=== PATIENT | female | born 1955 | race African-American/Black ===

== ENCOUNTER 2016-11-20 18:06 | Inpatient (IN) | payer OTHER ==
--- NOTE | ~2016-11-20 | EKG ---
PATIENT: KATLYN EASLEY UNIT #: [id number] Ventricular Rate: 117 BPM Atrial Rate: 300 BPM QRS Duration: 82 ms Q-T Interval: 312 ms QTC Calculation(Bezet): 435 ms Calculated R [place]: 83 degrees Calculated T [place]: -111 degrees Diagnosis Line: Atrial fibrillation with rapid ventricular Diagnosis Line: response Diagnosis Line: ST and T wave abnormality, consider inferolateral Diagnosis Line: ischemia or digitalis effect Diagnosis Line: Abnormal ECG Diagnosis Line: When compared with ECG of 28-NOV-2016 06:22, Diagnosis Line: Inverted T waves have replaced nonspecific T wave Diagnosis Line: abnormality in Inferior leads Diagnosis Line: Inverted T waves have replaced nonspecific T wave Diagnosis Line: abnormality in Lateral leads Diagnosis Line: Confirmed by LAURA ARMAS MD ([id number]) on Diagnosis Line: 12/04/2016 10:39:50 PM INTERPRETING MD: VINCENT
--- NOTE | ~2016-11-20 | FU ---
[facility] DATE: 11/24/16 Patient: KATLYN EASLEY Physician: MORCAR Address: [address] [place] [address] CT Room/Bed: [address], Zip: [place] [address] Admit Date: 11/21/16 Date of : 53 Height: 5 7 Weight: 484 219.8 NUTRITION MONITORING/FOLLOW-UP: Reason: PT SEEN FOR FOLLOW-UP/ENTERAL NUTRITION SUPPORT DX: ACUTE CHF, AFIB, AMS, PNA Anthropometrics: 5'7", WT: 489# (222 KG), BMI: 76.6 -ADMIT WEIGHT: 503# (229 KG) Labs: GLU: 126, ALB: 2.6, AST: 61, ALT: 57, GFR: 58.5 Meds: VERSED, FENTANYL, COLACE, KCL, VERSED, PROTONIX I&O's: 0700/0106 Skin: ISSUES NOTED; ALSO ABD WOUND NOTED EDEMA: BLE 2+ EDEMA Estimated Nutrition Needs: [phone] KCAL/K ADJ BW 122-153 G PRO/KG IBW Assessment: CHART REVIEWED AND EVENTS NOTED. PT SEEN FOR ENTERAL NUTRITION SUPPORT FOLLOW-UP. PT CONTINUES TO BE INTUBATED AND SEDATED AT TIME OF VISIT RECEIVING VITAL HIGH PROTEIN @ 75 ML/HR. PER RN AND CHART, PT TOLERATING ENTERAL NUTRITION SUPPORT AND NOTING NO ISSUES AT THIS TIME. RD TO CONTINUE TO FOLLOW. Dx: INADEQUATE ORAL INTAKE R/T DX, CURRENT CONDITION AEB PT INTUBATED AND SEDATED, PT RECEIVING ALTERNATIVE NUTRITION SUPPORT. Intervention: 1. ENTERAL NUTRITION SUPPORT Monitoring, Evaluation and Goals: GOALS MET 1. ENTERAL NUTRITION; TOLERATE EN AT GOAL W/NO SIGNS OF INTOLERANCE 2. PO INTAKE; ADVANCE DIET PER PT TOLERANCE 3. WEIGHTS; PROMOTE GRADUAL WEIGHT LOSS 4. LABS; WNL MONITOR: -WEIGHTS -TF RATE/RESIDUALS -EXTUBATION? -LABS [facility] DATE: 11/24/16 Patient: KATLYN EASLEY Physician: HARIS Address: [address] [place] [address] Room/Bed: [address], Zip: [place] [address] Admit Date: 11/21/16 Date of : [birth year] Height: 5 7 Weight: 484 219.8 Recommendations: 1. CONTINUE CURRENT ENTERAL NUTRITION SUPPORT OF VITAL HIGH PROTEIN @ 75 ML/HR -PROVIDES 1800 KCAL, 157 G PRO, 1512 ML FREE H20 CONTINUE FREE H20 FLUSHES PER MD 2. ONCE PT EXTUBATED, ADVANCE DIET PER VP STRATEGY + CC+HH TO PROMOTE GRADUAL WEIGHT LOSS TOWARDS HEALTHY BMI (19.0-25.0) OR +/-10%IBW RD WILL F/U PER PROTOCOL PT IS SEVERELY COMPROMISED Respectfully, FERN WOODRUFF MS, RD, LD Food and Nutritional Services [facility] cc: client file
--- NOTE | ~2016-11-20 | OR ---
Unit #: [id number] #: [id number] Patient: KATLYN EASLEY [id number] [address] [address] [id number] Vashti MR#: [id number] NAME: KATLYN EASLEY ROOM: [facility] Date of Procedure: 11/30/2016 Admission Date: 11/21/2016 Surgeon: Nahun Cardona M.D. : 1955 Attending Physician: Elizabeth Chamberlain M.D. OPERATIVE REPORT PROCEDURE PERFORMED Esophagogastroduodenoscopy to descending duodenum. INDICATIONS FOR PROCEDURE A 61-year-old female on chronic ventilator and tube feeding from chronic respiratory failure, undergoing evaluation for PEG tube placement. MEDICATIONS Monitored anesthesia. POSTOPERATIVE FINDINGS 1. Normal esophagus, normal duodenum, and distal duodenum. 2. Moderate gastritis. 3. I was unable to see a good spot for PEG tube placement by transillumination and indentation and hence, PEG tube was not attempted. PLAN Consult Surgery for surgical G-tube placement. DESCRIPTION OF PROCEDURE The patient was explained of the procedure, risks, and benefits along with risks and benefits of the anesthesia. Informed consent was obtained from power of securities attorney. Endo team was brought to the ICU. Monitored anesthesia was given. The scope was then passed down the mouth into the esophagus, stomach, duodenum, and distal duodenum. Findings as described. I did not see any transillumination despite many attempts. No indentation was seen also. At this point, we decided it was not possible to put a feeding tube. The scope was gently pulled out. She tolerated it well. No major complications were seen. Dictated by... Solo Wright/nanda TD: 11/30/2016 23:18 JOB #: [id number] Unit #: [id number] #: [id number] Patient: KATLYN EASLEY OPERATIVE REPORT X Nahun Cardona MD PROCEDURE OPERATIVE NOTE
--- NOTE | ~2016-11-20 | CR71 ---
[facility] A Service of [facility] & [facility] RADIOLOGY TEXT RESULTS PATIENT: KATLYN EASLEY LOCATION: [place] [address]10 : [birth year] UNIT #: [id number] AGE: [address]: Elizabeth Chamberlain MD SEX: F ORDER DR: [id number] [facility] [address] [facility] [place], [place] [address] [id number] I MR#: [id number] Acc #: [id number] NAME: KATLYN EASLEY : 1955 SEX: F STUDY DATE/TIME: 11/25/2016 4:44 UNIT: [facility] ROOM: [facility] STUDY DESCRIPTION: CR Chest Single View Attending Physician: Elizabeth Chamberlain M.D. Ordering Physician: Katie Peguero M.D. Primary Care Physician: Primary Care Physician No MEDICAL IMAGING REPORT This report is preliminary unless electronic signature is present EXAM Portable chest 11/25/2016 HISTORY Acute respiratory failure, intubated, follow up infiltrates. Congestive heart failure. Symptoms for 4 days. Benign essential hypertension and atrial fibrillation. FINDINGS The heart is enlarged but stable compared with 11/24/2016. There has been no change in the position of the life support equipment. There are bilateral pleural effusions layering posteriorly with bibasilar infiltrates or atelectasis. Pulmonary edema is essentially unchanged. IMPRESSION No interval change compared with 11/24/2016. Dictated by... Ken Childs M.D. THIS IS AN ELECTRONICALLY VERIFIED REPORT Ken Childs M.D. at 11/25/2016 3:00 PM PALOMA/bonifacio TD: 11/25/2016 07:10 JOB #: [id number] MEDICAL IMAGING REPORT COPY
--- NOTE | ~2016-11-20 | FU ---
[facility] Nutrition Therapy DATE: 12/07/16 Patient: KATLYN EASLEY Physician: MORCAR Address: [address] [place] [address] Room/Bed: [address], Zip: [place] [address] Admit Date: 11/21/16 Date of : [birth year] Height: 5 7 Weight: 471 214 NUTRITION MONITORING/FOLLOW-UP: Reason: PT SEEN FOR FOLLOW-UP/ENTERAL NUTRITION SUPPORT DX: ACUTE CHF Anthropometrics: 5'7", WT: 471# ( 214 KG), BMI: 73.8 Labs: BUN: 49, ALB: 1.8, AST: 48, GFR: 49.0, NA+:151 Meds: D5%, LOPRESSOR, NACL, VERSED, PROTONIX, ZOFRAN, KCL I&O's: 1080/830 Skin: ABD WOUND NOTED EDEMA: PEDAL/ANKLE 1+ EDEMA; BUE/HANDS GENERALIZED EDEMA; BLE GENERALIZED EDEMA Estimated Nutrition Needs: 3521-2801 KCAL (ADJUSTED BODY WEIGHT) 122-153 G PRO (IBW) FLUIDS CONSISTENT W/KCAL NEEDS OR MANAGE PER MD Assessment: CHART REVIEWED AND EVENTS NOTED. PT SEEN FOR ENTERAL NUTRITION SUPPORT FOLLOW-UP. PT CONTINUES TO BE INTUBATED AND SEDATED. ENTERAL NUTRITION SUPPORT CURRENTLY OFF AT THIS TIME. OF NOTE, PT IS S/P EXPLORATORY LAP TRANSVERSE COLOSTOMY PLACEMENT. POOR PROGNOSIS NOTED, PER MD NOTES. NO FAMILY IN ROOM AT THIS TIME. RD TO CONTINUE TO FOLLOW. SEE RECOMMENDATIONS BELOW. Dx: INADEQUATE ENTERAL NUTRITION SUPPORT INFUSION R/T CURRENT CONDITION, S/P EXP LAP AEB ENTERAL NUTRITION SUPPORT OFF AT THIS TIME. Intervention: 1. ENTERAL NUTRITION SUPPORT OFF Monitoring, Evaluation and Goals: GOALS NOT MET 1. ENTERAL NUTRITION; TOLERATE EN AT GOAL W/NO SIGNS OF INTOLERANCE 2. WEIGHTS; PROMOTE GRADUAL WEIGHT LOSS 3. LABS; WNL (NA+) 4. SKIN; PROMOTE WOUND HEALING MONITOR: -WEIGHTS -PLANS FOR SUPPORT -LABS -EXTUBATION? [facility] Nutrition Therapy DATE: 12/07/16 Patient: KATLYN EASLEY Physician: HARIS Address: [address] [place] [address] Room/Bed: [address], Zip: [place] [address] Admit Date: 11/21/16 Date of : [birth year] Height: 5 7 Weight: 471 214 Recommendations: 1. ONCE MEDICALLY FEASIBLE, RE-START ENTERAL NUTRITION SUPPORT OF VITAL HIGH PROTEIN @ 20 ML/HR, ADVANCE 10 ML q 4 HOURS TO GOAL RATE OF 75 ML/HR -PROVIDES 1800 KCAL, 157 G PRO, 1512 ML FREE H20 ADD FREE H20 FLUSHES PER MD 2' HYPERNATREMIA NOTED 2. IF TPN WARRENTED, CONSULT RD FOR RECOMMENDATIONS 3. ONCE PT EXTUBATED, ADVANCE DIET PER BRANCH EXAMINER + CC+HH +[address] WILL F/U PER PROTOCOL PT IS SEVERELY COMPROMISED Respectfully, FERN WOODRUFF MS, RD, LD Food and Nutritional Services [facility] cc: client file
--- NOTE | ~2016-11-20 | CO ---
Unit #: [id number] #: [id number] Patient: JOANNE PICKETT [id number] [facility] [address] [facility]. [place], [place] [address] [id number] I MR#: [id number] NAME: JOANNE PICKETT ROOM: [facility] Age: 61 Sex: F Admission Date: 11/21/2016 : 1955 Attending Physician: Elizabeth Chamberlain M.D. Primary Care Physician: No Primary Care Physician CONSULTATION REPORT REASON FOR CONSULTATION Referring physician is Dr. Martir Root regarding tracheostomy for respiratory failure. HISTORY OF PRESENT ILLNESS Ms. Joanne Pickett is a 61-year-old, -Malaysian female who presented to the emergency room with a 2-day history of increased shortness of air with associated confusion, only alert to self. On admit, she was intubated on 11/21/16 and admitted to the ICU. Patient has chronic atrial fibrillation with good rate control. She has acute on chronic heart failure with BNP on admit of 633 and a D-dimer of 3173. A CT with PE protocol was negative for pulmonary embolism. The patient is presently on a heparin drip. Eliquis was stopped on Monday by Dr. Davis. Dr. Davis has cleared her for placement of her tracheostomy on of this week. Dr. Root is currently continuing to attempt her respirator; however, FIO2 continues at 50% and a PEEP of 5. She is currently on a Bumex drip. PAST MEDICAL HISTORY Obstructive sleep apnea, which was previously untreated; congestive heart failure, chronic; and chronic atrial fibrillation. PAST SURGICAL HISTORY Includes hysterectomy, cholecystectomy, and her history is limited due to she has not been admitted here before at [facility] and she was been unable to tell us where she has been and family has not had much to add to her history. FAMILY AND SOCIAL HISTORY Son is the Power of Ob Gyn or the person who makes decisions for her. She lives alone. Unable to determine any alcohol or illicit drug or smoking history, although it is obvious that she does have COPD. REVIEW OF SYSTEMS We are unable to obtain. MEDICATIONS Her medications are reviewed. She is on a heparin drip and the MAR is on the chart. MEDICATIONS ALLERGIES None. PHYSICAL EXAMINATION Unit #: [id number] #: [id number] Patient: JOANNE PICKETT VITAL SIGNS: Temperature is 99.2; heart rate is 101, atrial fibrillation; respiratory rate 18; blood pressure 111/71; and O2 sats 92%. GENERAL APPEARANCE: Ms. Pickett is a 61-year-old, morbidly obese, -Malaysian female orally intubated. History from chart. NECK: Pendulous. No IJ is present. HEENT: Normocephalic. No facial asymmetry. Sclerae are anicteric. LUNGS: Decreased throughout with some rales in the bases. CARDIOVASCULAR: S1 and S2 without rub and without murmur. She has an irregular heartbeat. ABDOMEN: Large, round, and pendulous. She is distended, but is having stool. Bowel sounds are noted. EXTREMITIES: She has 2+ peripheral edema. NEUROLOGIC: She is awake. She nods her head appropriately to yes and no questions. DIAGNOSTIC STUDIES LABORATORY: BUN 44, creatinine 1.3, sodium 148, potassium 4.1, mag 2.8. WBCs are 8.3, platelets 179, hemoglobin 12.2, and hematocrit 43.4. pH 7.42, pCO2 78.4, pO2 82.8, sat. 93.7, FIO2 50%, AC of 18, and tidal volume 550. IMAGING: Chest x-ray shows increased vascular congestion. IMPRESSION 1. Respiratory failure with vascular congestion. 2. Obstructive sleep apnea. 3. Acute on chronic congestive heart failure. 4. Chronic atrial fibrillation currently on heparin drip. PLAN Failure to wean. Discussed with Dr. Root, Dr. Montenegro, and Dr. Davis. Trach in the operating room on . Dictated by... Adelaida Bass/becca TD: 11/30/2016 08:41 JOB #: [id number] CONSULTATION REPORT X Johanny Borja APRN X CONSULTATION REPORT
--- NOTE | ~2016-11-20 | CR72 ---
[facility] A Service of [facility] & [facility] RADIOLOGY TEXT RESULTS PATIENT: KATLYN EASLEY LOCATION: [address] : [birth year] UNIT #: [id number] AGE: [address]: Shubham Dennison MD SEX: F ORDER DR: [id number] [facility] [address] [facility]. [place], [place] [address] [id number] I MR#: [id number] Acc #: [id number] NAME: KATLYN EASLEY : 1955 SEX: F STUDY DATE/TIME: 12/06/2016 6:08 UNIT: [facility] ROOM: [facility] STUDY DESCRIPTION: CR Chest Single View Portable Attending Physician: Elizabeth Chamberlain M.D. Ordering Physician: Sanaz Root M.D. Primary Care Physician: Primary Care Physician No MEDICAL IMAGING REPORT This report is preliminary unless electronic signature is present EXAM Portable chest 12/06 INDICATIONS Respiratory failure and heart failure. Recent tracheostomy tube placement. FINDINGS AP portable chest is compared with 12/04/2016. Cardiomegaly and mediastinal widening are stable. There is continued vascular congestion with a mild degree of edema. No visible pneumothorax. Patient has a right arm approach PICC. The tip has flipped up into the right internal jugular vein. The tip is not seen. Dictated by... Ryley Brown Jr., M.D. THIS IS AN ELECTRONICALLY VERIFIED REPORT Ryley Brown Jr., M.D. at 12/06/2016 3:48 PM GIOVANNI/mattie TD: 12/06/2016 07:00 JOB #: [id number] MEDICAL IMAGING REPORT COPY
--- NOTE | ~2016-11-20 | FU ---
[facility] Nutrition Therapy DATE: 12/09/16 Patient: KATLYN EASLEY Physician: HARIS Address: [address] [facility] Room/Bed: [address], Zip: [place] [address] Admit Date: 11/21/16 Date of : [birth year] Height: 5 7 Weight: 476 216.3 NUTRITION MONITORING/FOLLOW-UP: Reason: PT SEEN FOR FOLLOW-UP/TPN EVAL DX: ACUTE CHF Anthropometrics: 5'7", WT: 476# ( 216 KG), BMI: 74.5 Labs: BUN: 47, K+:3.2, NA+:147, ALB: 1.8, AST: 45, GFR: 53.4 Meds: TPN, KCL, NOVOLOG, LOPRESSOR, PROTONIX, VERSED, ZOFRAN I&O's: 2958/3326 Skin: ABD WOUND (ISSUES NOTED) EDEMA: PEDAL/ANKLE 2+ EDEMA; BUE/HANDS 2+ EDEMA; BLE 2+ EDEMA; ABD GENERALIZED EDEMA Estimated Nutrition Needs: 2567-4229 KCAL 122-153 G PRO Assessment: CHART REVIEWED AND EVENTS NOTED. PT SEEN FOR FOLLOW-UP. PT CONTINUES TO BE INTUBATED AND SEDATED RECEIVING TPN 25% DEXTROSE, 5% AA @ 85 ML/HR + (NO LIPIDS). OF NOTE, PT IS S/P EXPLORATORY LAP TRANSVERSE COLOSTOMY PLACEMENT ON 12/06/16. NO FAMILY IN ROOM AT TIME OF VISIT. RD TO CONTINUE TO FOLLOW. SEE RECOMMENDATIONS BELOW. -TPN PROVIDES 102 G PRO, 1734 NON-PROTEIN KCAL, 2142 TOTAL KCAL (GUR: 1.6) Dx: INADEQUATE ORAL INTAKE R/T DX, CURRENT CONDITION AEB NEED FOR ALTERNATIVE NUTRITION SUPPORT, PT INTUBATED AND SEDATED. Intervention: 1. TPN Monitoring, Evaluation and Goals: GOALS NOT MET 1. PARENTERAL NUTRITION; TOLERATE TPN AT GOAL W/NO SIGNS OF INTOLERANCE 2. ENTERAL NUTRITION; TOLERATE EN AT GOAL W/NO SIGNS OF INTOLERANCE 3. LABS; WNL: LYTES 4. GI; PROMOTE REGULAR GI FUNCTION 5. WEIGHTS; PROMOTE GRADUAL WEIGHT LOSS MONITOR: -TPN RATE/TOLERANCE -WEIGHTS -LABS -EXTUBATION? [facility] Nutrition Therapy DATE: 12/09/16 Patient: KATLYN EASLEY Physician: HARIS Address: [address] [facility] Room/Bed: [address], Zip: [place] [address] Admit Date: 11/21/16 Date of : [birth year] Height: 5 7 Weight: 476 216.3 Recommendations: 1. RECOMMEND TO ADVANCE CURRENT TPN 25% DEXTROSE, 5% AA TO GOAL RATE OF 100 ML/HR -PROVIDES 120 G PRO, 2040 NON-PROTEIN KCAL, 2520 TOTAL KCAL (GUR: 1.9) 2. CONTINUE TO MONITOR ELECTROLYTES DAILY (K+, NA+, PHOS) + BLOOD SUGARS + TGs 3. IF PT CAN TOLERATE ENTERAL NUTRITION SUPPORT, RECOMMEND VITAL HIGH PROTEIN @ 20 ML/HR, ADVANCE 10 ML q 4 HOURS TO GOAL RATE OF 75 ML/HR 4. ONCE PT EXTUBATED, ADVANCE DIET PER COORDINATOR OF EVALUATION EVAL + CC/HH +[address] WILL F/U PER PROTOCOL PT IS SEVERELY COMPROMISED Respectfully, FERN WOODRUFF MS, RD, LD Food and Nutritional Services [facility] [place] [facility] cc: client file
--- NOTE | ~2016-11-20 | CR72 ---
[facility] A Service of [facility] & [facility] RADIOLOGY TEXT RESULTS PATIENT: KATLYN EASLEY LOCATION: [place] [address]10 : [birth year] UNIT #: [id number] AGE: [address]: Elizabeth Chamberlain MD SEX: F ORDER DR: [id number] [facility] [address] [facility]. [place], [place] [address] [id number] I MR#: [id number] Acc #: [id number] NAME: KATLYN EASLEY : 1955 SEX: F STUDY DATE/TIME: 11/23/2016 2:28 UNIT: [facility] ROOM: [facility] STUDY DESCRIPTION: CR Chest Single View Portable Attending Physician: Elizabeth Chamberlain M.D. Ordering Physician: Katie Peguero M.D. Primary Care Physician: Primary Care Physician No MEDICAL IMAGING REPORT This report is preliminary unless electronic signature is present EXAM Portable chest, 11/23/2016 HISTORY Respiratory failure and heart failure for 2 days with shortness of breath, benign essential hypertension, atrial fibrillation. FINDINGS The heart is enlarged but stable compared with 11/22/2016. There has been no change in the position of the life-support equipment. Pulmonary edema is unchanged. Bilateral pleural effusions with bibasilar infiltrates or atelectasis. IMPRESSION No interval change compared with 11/22/2016. Dictated by... Ken Childs M.D. THIS IS AN ELECTRONICALLY VERIFIED REPORT Ken Childs M.D. at 11/23/2016 10:18 PM PALOMA/juliana TD: 11/23/2016 03:22 JOB #: [id number] MEDICAL IMAGING REPORT COPY
--- NOTE | ~2016-11-20 | CO ---
Unit #: [id number] #: [id number] Patient: KATLYN EASLEY [id number] [address] [place], [place] [address] [id number] I MR#: [id number] NAME: KATLYN EASLEY ROOM: [facility] Age: 61 Sex: F Admission Date: 11/21/2016 : 1955 Attending Physician: Shubham Dennison M.D. Primary Care Physician: Nupur Primary Care Physician Consultation Date: 12/06/2016 CONSULTATION REPORT REQUESTING PHYSICIAN Dr. Root. REASON FOR CONSULTATION Abdominal sepsis. HISTORY OF PRESENT ILLNESS This is a very unfortunate 61-year-old female who is morbidly obese and she was admitted with respiratory failure and COPD exacerbation and possible pneumonia. She did receive ventilatory support and received several days of IV antimicrobial therapy. Eventually because of failure to wean she underwent trach followed by attempted G-tube placement which was not successful endoscopically so she was taken to the OR four days ago for open gastrostomy tube. Unfortunately now she is having drainage from the wound with fecal contents for which antibiotics were adjusted and ID was consulted for further evaluation. Patient is on the event. She is somewhat responsive but does not look septic or toxic. She is not on any pressors at this time and she looks comfortable. She has a feeding tube in place as well as a trach and there is a long incision in the belly which is draining bloodstained intestinal contents with fecal smell. PAST MEDICAL HISTORY 1. Atrial fibrillation. 2. Congestive heart failure. 3. Obesity. 4. Hypertension. PAST SURGICAL HISTORY Previous surgeries: 1. Hysterectomy. 2. Cholecystectomy. CURRENT MEDICATIONS Digoxin, metoprolol, Bumex, meropenem, vancomycin, Diflucan, Flagyl, right after that she received several days of Zosyn. She is also on Eliquis, albuterol, ipratropium, miconazole, docusate sodium, Seroquel, digoxin, pantoprazole, metoprolol, fentanyl, IV fluids and potassium supplements, heparin. DRUG ALLERGIES None listed. SOCIAL HISTORY Unit #: [id number] #: [id number] Patient: KATLYN EASLEY She is unable to communicate so social history is unable to be obtained. FAMILY HISTORY Unknown. HOME MEDICATION Includes Cartia, Lovenox, Toprol, Lasix and potassium chloride. REVIEW OF SYSTEMS Systemic review is unable to be obtained. Chart was reviewed and discussions were held with the nursing staff. Pertinent findings are listed in the history of present illness. PHYSICAL EXAMINATION GENERAL: Physical examination reveals a morbidly obese middle-aged female who is on a vent via trach. Her eyes are open. She does follow simple commands, does not appear to be in any distress at this time. VITAL SIGNS: Temperature 98.9. Heart rate 96. Respiration 18. Blood pressure 102/58. T-max was 102.3 about 48 hours ago. NECK: IV site is clean. Neck is supple. HEENT: There is no thrush. EXTREMITIES: She has edema bilaterally. LUNGS: Clear to percussion and auscultation. HEART: Sounds are normal. ABDOMEN: Postoperative, obese and tender. G-tube is in place. There is a large incision in the abdominal wall with central dehiscence which is draining bloodstained fecal material. There is no rebound or guarding. Bowel sounds are normal. NEUROLOGIC: Neurologically she is awake and follows commands. DIAGNOSTIC STUDIES LABORATORY: All the cultures including blood, sputum and urine have been negative. C. diff was negative as well. White count is 10.8, hemoglobin 11.9, platelets 168. Sodium is 153, potassium 3.9, chloride 102, CO2 is 39, BUN 44, creatinine 1.1. Urinalysis two days ago showed 5 to 10 WBCs, not specific for UTI. IMAGING: Chest x-ray cardiomegaly, vascular congestion, some edema. No definitive consolidation was noted. 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 It does not appear to me that she has pneumonia at this time or UTI. RECOMMENDATIONS I agree with meropenem and Diflucan and will add Flagyl as well for dual anaerobic coverage; will discontinue vancomycin since MRSA is unlikely and has not been isolated during this admission. She is scheduled to undergo exploratory laparotomy sometime today with which I fully agree. Supportive care should be continued. Further recommendation will follow. Dictated by... Reyes Ortiz M.D. Unit #: [id number] #: [id number] Patient: KATLYN KYLE/magda TD: 12/06/2016 16:56 JOB #: [id number] CONSULTATION REPORT X Reyes Ortiz MD CONSULTATION REPORT
--- NOTE | ~2016-11-20 | FU ---
[facility] Nutrition Therapy DATE: 12/02/16 Patient: KATLYN EASLEY Physician: HARIS Address: [address] [facility] Room/Bed: [address], Zip: [place] [address] Admit Date: 11/21/16 Date of : 53 Height: 5 7 Weight: 461 209.5 NUTRITION MONITORING/FOLLOW-UP: Reason: Enteral nutrition follow-up Anthropometrics: current wt: 209.5 kg Labs: BUN 49, glucose POC 91, AST 61, ALT 43, GFR 49.0, Na 150 Meds: Bumex, PPI, Zosyn, Zofran prn, Fentanyl, Versed I&O's: 1464/2825, last BM 12/01 Skin: Issues noted, + trach, edema BUE/hands trace/generalized Estimated Nutrition Needs: 9764-0726 kcals per day (22-25 kcals/kg adjusted BW) 122-153 g protein per day (2-2.5 g/kg IBW) Fluids per MD Assessment: Chart reviewed, events noted. Patient got trach yesterday, DHT was dislodged and not replaced as the patient is getting a PEG today. EN has been off since after midnight 12/01, patient was previously tolerated Vital 1.5 (we were out of Vital HP) @ goal of 75 ml/hr. Patient is having BM's. Per RN will restart EN tomorrow. Plan is for [place]. See new nutrition dx, unable to determine if previous goal (> 80% EN volume/24hrs) met as EN is off at this time. See RD recs below, we now have Vital HP back in stock. Will follow. Dx: Inadequate enteral nutrition infusion r/t DHT dislodgement AEB RN report, EN off at this time, PEG today. Intervention: Restart EN per recs below once PEG placed and functioning Monitoring, Evaluation and Goals: 1. EN consistent with estimated needs. 2. Gradual weight loss towards a healthy BMI range. 3. Improvement in lab values (Na, BUN, AST, ALT). Monitor: Per protocol, criteria to determine if above goals met Recommendations: Once PEG is placed and functioning in correct position restart enteral feeds with Vital [facility] Nutrition Therapy DATE: 12/02/16 Patient: KATLYN EASLEY Physician: HARIS Address: [address] [facility] Room/Bed: [address], Zip: [place] [address] Admit Date: 11/21/16 Date of : 53 Height: 5 7 Weight: 461 209.5 High Protein formula (now back in stock) @ 20 ml and increase by 10 ml q 4 hours until goal rate of 75 ml/hr is reached, to provide 1800 kcals, 157 g protein and 1512 ml water. Once at goal rate add free water flushes per MD noting hypernatremia. Status: Moderate nutrition risk Respectfully, Simran Cararnza, ALEN, LD [facility] and Nutrition[facility] Services [facility] cc: client file
--- NOTE | ~2016-11-20 | CR72 ---
[facility] A Service of [facility] & [facility] RADIOLOGY TEXT RESULTS PATIENT: KATLYN EASLEY [facility]: [facility] : 53 UNIT #: [id number] AGE: [address]: Elizabeth Chamberlain MD SEX: F ORDER DR: [id number] [facility] [address] [facility]. [place], [place] [address] [id number] E MR#: [id number] Acc #: [id number] NAME: KATLYN EASLEY : 1955 SEX: F STUDY DATE/TIME: 11/20/2016 18:45 UNIT: [facility] ROOM: STUDY DESCRIPTION: CR Chest Single View Portable Attending Physician: Campos Galindo M.D. Ordering Physician: Campos Galindo M.D. Primary Care Physician: Primary Care Physician No MEDICAL IMAGING REPORT This report is preliminary unless electronic signature is present EXAM Chest single view portable, 11/20/2016 INDICATIONS Shortness of air. Cough and congestion for 4 days. FINDINGS Single portable AP view of the chest compared to 11/23/2013 and 12/15/2012. The heart is enlarged. There is increased interstitial markings in both lungs indicating a component of interstitial edema. Small bilateral pleural effusions are suspected. No pneumothorax. IMPRESSION 1. Cardiomegaly and increased interstitial edema. 2. Suspected bilateral pleural effusions. Dictated by... Jordin Collins M.D. THIS IS AN ELECTRONICALLY VERIFIED REPORT Jordin Collins M.D. at 11/21/2016 11:40 AM RPC/bing TD: 11/20/2016 23:52 JOB #: [id number] MEDICAL IMAGING REPORT COPY
--- NOTE | ~2016-11-20 | A ---
[facility] Nutrition Therapy DATE: 11/21/16 Patient: KATLYN EASLEY Physician: MORCAR Address: [address] [place] [address] CT Room/Bed: [address], Zip: [place] [address] Admit Date: 11/21/16 Date of : 53 Height: 5 7 Weight: 504 229 NUTRITIONAL ASSESSMENT: REASON: NPO IN ICU ASSESSMENT, ALSO HIGH BMI DOCUMENTATION PT IS 61 Y.O. FEMALE ADMITTED FOR ACUTE CHF PMH: A FIB, HTN, CHF, HX OF CHOLECYSTECTOMY Anthropometrics: 5'7", WT: 503# (229 KG) (BEDSIDE), BMI: 78.8, 373%IBW Labs: CA+:8.2, ALB: 2.9, AST: 101, ALT: 78, GFR: 49.0 Meds: PROPOFOL, PROTONIX, NACL I/O & Bowel function: -/1450 Skin Integrity: FUNGAL INFECTION NOTED UNDER BREAST FOLDS AND ?ROWENA AREA EDEMA: BLE 2+ EDEMA Estimated Nutrition Needs: 6121-0032 KCAL (22-25 KCAL/KG ADJUSTED BW) (253#/115 KG) 122-153 F PRO (2.0-2.5 G PRO/KG IBW) FLUIDS CONSISTENT W/KCAL NEEDS OR MANAGE PER MD Assessment: CHART REVIEWED AND EVENTS NOTED. PT SEEN FOR NPO IN ICU ASSESSMENT. PT CURRENTLY INTUBATED AND SEDATED W/PROPOFOL (RATE OF 82.4 ML/HR PROVIDING ~2175 KCAL FROM LIPIDS). NO FAMILY IN ROOM AT THIS TIME. PER RN AND CHART, NO CURRENT PLANS IN PLACE FOR ALTERNATIVE NUTRITION SUPPORT AT THIS TIME. RD TO FOLLOW AND MAKE RECOMMENDATIONS. Dx: INADEQUATE ORAL INTAKE R/T DX, CURRENT CONDITION AEB PT INTUBATED AND SEDATED, NPO STATUS. -OBESITY R/T LIFESTYLE AEB BMI OF 78.8. Intervention: 1. NPO Monitoring, Evaluation and Goals: 1. ENTERAL NUTRITION; PROVIDE 100% ESTIMATED NUTRIENT NEEDS; TOLERATE EN AT GOAL W/NO SIGNS OF INTOLERANCE 2. PO INTAKE; ADVANCE DIET PER PT TOLERANCE 3. WEIGHTS; PROMOTE GRADUAL WEIGHT LOSS 4. SKIN; PROMOTE SKIN HEALING MONITOR: [facility] Nutrition Therapy DATE: 11/21/16 Patient: KATLYN EASLEY Physician: HARSI Address: [address] [place] [address] Room/Bed: [address], Zip: [place] [address] Admit Date: 11/21/16 Date of : 53 Height: 5 7 Weight: 504 229 -WEIGHTS -PLANS FOR SUPPORT -SEDATION RATE -EXTUBATION? Recommendations: 1. ONCE MEDICALLY FEASIBLE AND EXTUBATED, ADVANCE DIET PER ELECTROTYPE CASTER + CC+HH DIET TO PROMOTE GRADUAL WEIGHT LOSS TOWARDS HEALTHY BMI (19.0-25.0) OR +/-10%IBW 2. IF PT REMAINS INTUBATED FOR >24 HOURS, CONSIDER PLACING DHT AND BEGIN ALTERNATIVE NUTRITION SUPPORT OF VITAL HIGH PROTEIN @ 20 ML/HR + SEDATION + SUGAR-FREE PROSTAT BID 3X DAILY -PROVIDES 3255 KCAL, 132 G PRO, 403 ML FREE H20 ADD FREE H20 FLUSHES PER MD RD WILL F/U PER PROTOCOL PT IS SEVERELY COMPROMISED Respectfully, FERN WOODRUFF MS, RD, LD Food and Nutritional Services [facility] cc: client file
--- NOTE | ~2016-11-20 | CO ---
Unit #: [id number] #: [id number] Patient: KATLYN EASLEY [id number] [address] [place], [place] [address] [id number] I MR#: [id number] NAME: KATLYN EASLEY ROOM: [facility] Age: 61 Sex: F Admission Date: 11/21/2016 : 1955 Attending Physician: Elizabeth Chamberlain M.D. Primary Care Physician: Nupur Primary Care Physician Consultation Date: 11/21/2016 CONSULTATION REPORT REASON FOR CONSULTATION Atrial fibrillation. HISTORY OF PRESENT ILLNESS This is a 61-year-old -Citizen Of [place] female who was currently intubated and is unable to provide a history. Information has been obtained from the chart. According to the records, the patient came in because of a two day history of shortness of breath. She was treated with IV diuretics in the emergency room. She had an elevated BNP on admission of 633. Chest x-ray shows cardiomegaly and pulmonary edema. D-dimer was also elevated at 3173. Because of the patient's body size, she was unable to undergo CTA of the chest to rule out PE. Venous Doppler studies is currently pending. Electrocardiogram found the patient to be in atrial fibrillation with a controlled ventricular rate. According to the patient she has known atrial fibrillation that has been treated with Toprol and Lanoxin. There was no acute ischemic changes. Troponin was elevated at 0.13, that is nondiagnostic. There was mild elevation of her liver enzymes. PAST MEDICAL HISTORY 1. Hypertension. 2. Atrial fibrillation not on anticoagulation. 3. Congestive heart failure. PAST SURGICAL HISTORY 1. Hysterectomy. 2. Cholecystectomy. SOCIAL HISTORY According to the records, the patient lived at home alone. Unsure whether she has tobacco, alcohol or illicit drug use. FAMILY HISTORY Unobtainable. ALLERGIES None on record. HOME MEDICATIONS 1. Cartia 180 mg daily. 2. Lanoxin 125 mcg daily. 3. Toprol XL 50 mg b.i.d. 4. Furosemide 80 mg b.i.d. 5. Potassium chloride 10 mEq b.i.d. Unit #: [id number] #: [id number] Patient: KATLYN EASLEY REVIEW OF SYSTEMS Unable to obtain because the patient is currently intubated. PHYSICAL EXAMINATION VITAL SIGNS: Blood pressure 139/88, heart rate 100, temperature 98.5, BMI 61. GENERAL: This is a 61-year-old obese, -Citizen [place] female who is currently intubated and sedated. NECK: Trachea is midline. No thyromegaly. No lymphadenopathy. No jugular venous distention. HEART: S1 and S2. Heart sounds are distant. There is an increase in the heart size with displaced PMI. No rubs or clicks. Irregular, irregular rhythm. ABDOMEN: Soft, obese with bowel sounds are present. No masses appreciated. No organomegaly. EXTREMITIES: With 2+ leg edema. SKIN: Warm and dry. DIAGNOSTIC STUDIES LABORATORY STUDIES: Glucose 89, BUN 23, creatinine 1.4, sodium 139, potassium 3.9, total bilirubin 1.5, AST 101, (1) 78. CK total 105, MB 6.6, MB index 6.3, troponin 0.07 to 0.13. BNP 633. Digoxin level 0.4. D-dimer 3173. White count 9.0, hemoglobin 14.6, hematocrit 48.3, platelet count 177. IMAGING STUDIES: Chest x-ray shows cardiomegaly and pulmonary edema. CARDIOVASCULAR STUDIES: Electrocardiogram shows atrial fibrillation with controlled ventricular rate of 97 BPM with rightward axis deviation. No acute ischemic changes. Echocardiogram shows an ejection fraction of 50% with right atrial and right ventricle enlargement. IMPRESSION 1. Acute hypoxic respiratory failure. 2. Acute on chronic diastolic heart failure with preserved ejection fraction of 50%. 3. Permanent atrial fibrillation and controlled ventricular rate. 4. Questionable obstructive sleep apnea with right atrial and right ventricular enlargement. 5. Elevated D-dimer rule out PE. 6. Morbid obesity. PLAN 1. Cardiology was consulted for atrial fibrillation. Will start on beta-servando for rate control. 2. The patient has a 2-VASc score of 2 and will need long-term anticoagulation. Will start on Pradaxa. Will attain patient cost. 3. D-dimer is elevated. Unable to do a CTA of the chest because of patient's body size. Await results of lower extremity Doppler to rule out PE especially given increase in right ventricle and right atrial size. 4. Agree with diurese with IV diuretics. Will add Aldactone. 5. Will follow the patient with you. Thank you for allowing us to assist in this patient's care. Unit #: [id number] #: [id number] Patient: KATLYN EASLEY Dictated by... Nik Carrillo A.P.R.N. for Zackery Tovar M.D. AEP/ts TD: 11/21/2016 13:03 JOB #: [id number] CONSULTATION REPORT X Nik Carrillo APRN X CONSULTATION REPORT
--- NOTE | ~2016-11-20 | OR ---
Unit #: [id number] #: [id number] Patient: KATLYN EASLEY [id number] [facility]. [place], [place] [address] [id number] I MR#: [id number] NAME: KATLYN EASLEY ROOM: [facility] Date of Procedure: 12/01/2016 Admission Date: 11/21/2016 Surgeon: Juan J Montenegro M.D. : 1955 Attending Physician: Elizabeth Chamberlain M.D. OPERATIVE REPORT PREOPERATIVE DIAGNOSES Respiratory failure with prolonged ventilatory support. POSTOPERATIVE DIAGNOSIS Respiratory failure with prolonged ventilatory support. PROCEDURE PERFORMED Open tracheostomy using a #8 extended proximal length Shiley tracheostomy tube. ANESTHESIA General. ESTIMATED BLOOD LOSS About 5 mL. DRAINS None. COMPLICATIONS None. DESCRIPTION OF PROCEDURE The patient was taken to the operating room and left on her hospital bed in a supine position. After general anesthesia had been induced per the endotracheal tube already in place, a rolled sheet was placed beneath the shoulders such as to extend the neck. The neck and upper chest were prepped with DuraPrep and draped in a sterile fashion. A small transverse skin incision was made just slightly below the cricoid cartilage. The incision was carried down through the subcutaneous tissue with hemostasis being obtained using the Bovie. Dissection was then carried out in a vertical fashion between the strap muscles exposing the thyroid isthmus. The thyroid isthmus was dissected free from the anterior wall of the trachea and then was clamped on each side with straight clamps. It was then cut. Suture ligatures of 3-0 silk were placed in each cut end of the thyroid isthmus to control bleeding. A tracheal hook was placed beneath the cricoid cartilage. A small opening was made in the anterior wall of the trachea between rings 2 and 3. This area was spread with a Tonsil clamp. The endotracheal tube was withdrawn to just above this level. The Blue Rhino dilator was passed over a guide catheter and then both passed into the trachea at this level to dilate the opening. The Blue Rhino dilator was removed keeping the guide catheter in place. A #8 extended Unit #: [id number] #: [id number] Patient: KATLYN EASLEY proximal length Shiley tracheostomy tube with the appropriate size dilator in place was then passed over the guide catheter into the trachea. Following this, the guide catheter and dilator were removed. The inner cannula of the tracheostomy tube was inserted and the balloon inflated. The patient was then ventilated per this new tracheostomy tube. A 3-0 silk suture was placed in each end of the incision to narrow it down some. The tracheostomy tube was sutured in place to the skin using interrupted 2-0 silk suture. A 4x4 was cut to appropriate size and then placed beneath the tracheostomy tube. Tracheostomy tube was also secured in place using an adjustable tracheostomy collar. Estimated blood loss in the procedure was about 5 mL. Sponge and needle counts in the operation were correct. The patient tolerated the procedure well and left the operating room in satisfactory condition. Dictated by... Solo Palma/nanda TD: 12/02/2016 01:54 JOB #: [id number] CC: Sanaz Root M.D. OPERATIVE REPORT X Juan J Montenegro MD X PROCEDURE OPERATIVE NOTE
--- NOTE | ~2016-11-20 | EKG ---
PATIENT: KATLYN EASLEY UNIT #: [id number] Ventricular Rate: 97 BPM Atrial Rate: 108 BPM QRS Duration: 78 ms Q-T Interval: 318 ms QTC Calculation(Bezet): 403 ms Calculated R York: 113 degrees Calculated T York: -101 degrees Diagnosis Line: Atrial fibrillation Diagnosis Line: Right axis deviation Diagnosis Line: Nonspecific T wave abnormality Diagnosis Line: Abnormal ECG Diagnosis Line: No previous ECGs available Diagnosis Line: Confirmed by TERRI GUPTA MD ([id number]) on 11/20/2016 Diagnosis Line: 6:55:49 PM INTERPRETING MD: CANDY RILEY
--- NOTE | ~2016-11-20 | OR ---
Unit #: [id number] #: [id number] Patient: KATLYN EASLEY [id number] [place], [place] [address] [id number] I MR#: [id number] NAME: KATLYN EASLEY ROOM: [facility] Date of Procedure: Admission Date: 11/21/2016 Surgeon: Katie Peguero M.D. : 1955 Attending Physician: Elizabeth Chamberlain M.D. Primary Care Physician: Nupur Primary Care Physician PROCEDURE OPERATIVE NOTE PROCEDURE PERFORMED Central venous catheter placement. DETAILS OF THE PROCEDURE After placing patient in a proper position, with the help of ultrasound guidance and aseptic technique with Seldinger technique, a triple lumen central venous catheter placed in the left internal jugular vein. All three ports flushed and working. Guidewire was removed in total and secure with two interrupted sutures in place. The patient tolerated the procedure very well. No complications happened. Dictated by... Solo Benson/norberto TD: 11/21/2016 09:18 JOB #: [id number] PROCEDURE OPERATIVE NOTE X Katie Peguero MD PROCEDURE OPERATIVE NOTE
--- NOTE | ~2016-11-20 | OR ---
Unit #: [id number] #: [id number] Patient: KATLYN EASLEY [id number] [place], [place] [address] [id number] I MR#: [id number] NAME: KATLYN EASLEY ROOM: [facility] Date of Procedure: 12/02/2016 Admission Date: 11/21/2016 Surgeon: Drew Ramos Jr., M.D. : 1955 Attending Physician: Elizabeth Chamberlain M.D. Primary Care Physician: Primary Care Physician No OPERATIVE REPORT INDICATION FOR THE PROCEDURE The patient is a morbidly obese 61-year-old black female, who presented with respiratory failure and has been unable to be weaned from the respirator and also has been unable to eat. She has been maintained on tube feedings through a Dobbhoff tube and was felt for her to go to rehabilitation. Besides her tracheostomy, she is going to need a PEG gastrostomy. Two attempts at PEG gastrostomy were unsuccessful and therefore she is brought to the operating room at this time for open gastrostomy placement. Informed consent has been obtained. PREOPERATIVE DIAGNOSIS Unable to eat, maintain nutrition. POSTOPERATIVE DIAGNOSES Unable to eat, maintain nutrition. Also noting extremely dilated transverse colon. ANESTHESIA General with endotracheal intubation. WORM PICKER Gina Carrillo. PROCEDURES PERFORMED Exploratory laparotomy, Sarbjit gastrostomy tube placement using a 22 Duncan catheter with 30 mL balloon. DESCRIPTION OF PROCEDURE The patient was positioned in the supine position. After being anesthetized, she was prepped and draped in routine fashion for Sarbjit gastrostomy. A small 4 inch paramedian incision was made at the left of the upper midline. This was carried down through subcutaneous tissue down to the fascia and through the posterior rectus sheath. Upon opening the abdomen, there was significant amount of dilated colon present. The incision was extended another 3 inches above and 3 inches below and even with this, the stomach could not be pulled down to where it could be visualized. The incision was then extended on further down and a Bookwalter retractor placed and finally the stomach could be partially visualized up underneath a large globular liver. It could be pulled down enough to be tacked against the anterior abdominal wall to the right of the midline and therefore 2 pursestrings using 0 silk sutures were placed along the greater curvature and at this point, a 22 Duncan catheter with 30 Unit #: [id number] #: [id number] Patient: KATLYN EASLEY mL balloon was then tunneled through a separate stab wound in the right lateral abdominal wall area and brought down near the area of the pursestrings. 2-0 silk sutures were used to tack the stomach to the anterior abdominal wall to the right of the planned gastrostomy and gastrotomy was then performed with the Bovie cautery and hemostat and Duncan catheter was placed. The balloon inflated to 25 mL and then the tube irrigated freely with no evidence of any obstruction. The stomach was brought up against the anterior abdominal wall and initially placed 2 sutures were then tied and 2 additional sutures were tied to the left of the gastrotomy site forming a Sarbjit gastrostomy with the stomach tacked up against the anterior abdominal wall. After this was complete, the abdomen was irrigated with saline solution and the posterior rectus sheath closed with continuous #1 Vicryl sutures. Anterior rectus sheath and rectus muscle were approximated with interrupted #1 Vicryl sutures. The wound was irrigated and after hemostasis achieved with Bovie cautery, the skin edges were approximated with stainless-steel skin clips, skin stapling device. Sterile dressings were applied externally. Estimated blood loss less than 100 mL. The patient received less than 2000 mL crystalloid solution during the procedure. Sponges and instrument counts were correct x3. No drains used. No complications. The patient was taken back to the intensive care unit with stable vital signs with guarded condition. Dictated by... Drew Ramos Jr., M.D. JMB/annda TD: 12/03/2016 05:41 JOB #: [id number] OPERATIVE REPORT X Drew Ramos MD X PROCEDURE OPERATIVE NOTE
--- NOTE | ~2016-11-20 | CR71 ---
[facility] A Service of [facility] RADIOLOGY TEXT RESULTS PATIENT: KATLYN EASLEY LOCATION: [place] [address]-10 : [birth year] UNIT #: [id number] AGE: [address]: Elizabeth Chamberlain MD SEX: F ORDER DR: [id number] [facility]. [place], [place] [address] [id number] I MR#: [id number] Acc #: [id number] NAME: KATLYN EASLEY : 1955 SEX: F STUDY DATE/TIME: 12/01/2016 14:18 UNIT: [facility] ROOM: [facility] STUDY DESCRIPTION: CR Chest Single View Attending Physician: Elizabeth Chamberlain M.D. Ordering Physician: Elizabeth Chamberlain M.D. Primary Care Physician: Primary Care Physician No MEDICAL IMAGING REPORT This report is preliminary unless electronic signature is present EXAM Portable chest INDICATION 61-year-old female with followup support lines and tubes. COMPARISON Yesterday FINDINGS Tip of Dobbhoff tube projects over the distal esophagus. ET tube stable. No significant change in the bilateral perihilar infiltrates and the heart size. IMPRESSION 1. No significant change in the bilateral perihilar infiltrates. 2. ET tube is stable. 3. Tip of Dobbhoff tube projects over the distal esophagus. Dictated by... Adis Ruiz M.D. THIS IS AN ELECTRONICALLY VERIFIED REPORT Adis Ruiz M.D. at 12/02/2016 4:19 PM López TD: 12/01/2016 16:56 JOB #: [id number] MEDICAL IMAGING REPORT COPY
--- NOTE | ~2016-11-20 | CO ---
Unit #: [id number] #: [id number] Patient: KATLYN PICKETT [id number] [address] [place], [place] [address] [id number] MR#: [id number] NAME: KATLYN PICKETT ROOM: [facility] Age: 61 Sex: F Admission Date: 11/21/2016 : 1955 Attending Physician: Elizabeth Chamberlain M.D. Consultation Date: 11/30/2016 CONSULTATION REPORT REASON FOR CONSULTATION Evaluate for possible PEG tube placement for bypass feeds and nutritional support. Thank you very much for asking us to see Ms. Pickett. HISTORY OF PRESENT ILLNESS She is a 61-year-old black female, who was admitted on 11/21/2016 with shortness of breath. She is intubated at this time and is unable to give any history. The information was gleaned from the chart. She has a history of atrial fibrillation, heart failure, hypertension. She has not been able to be weaned. She is scheduled for tracheostomy tomorrow. She had attempted PEG tube placement by Dr. Cardona of GI medicine today; however, he was unable to see the light through the abdominal wall well enough to comfortably place the PEG tube. We were asked at this time for us to evaluate for possible PEG tube placement, possible open gastrostomy tube. PAST MEDICAL HISTORY Atrial fibrillation, heart failure, hypertension, hysterectomy, open cholecystectomy. SOCIAL HISTORY Unable to be obtained. FAMILY HISTORY Noncontributory. CURRENT MEDICATIONS Please see med rec sheet. ALLERGIES No known medical allergies. REVIEW OF SYSTEMS Unable to be obtained. IMMUNIZATION STATUS Unknown. PHYSICAL EXAMINATION GENERAL: Morbidly obese black female, who is intubated. VITAL SIGNS: Afebrile. Vital signs stable. Unit #: [id number] #: [id number] Patient: KATLYN PICKETT ABDOMEN: Large and protuberant. There was a large right subcostal incision consistent with an open cholecystectomy in the past and lower midline incision. DIAGNOSTIC STUDIES LABORATORY RESULTS: Reveal a CMP that shows a glucose of 124, BUN 44, creatinine 1.3, sodium 148, chloride 91, CO2 46. Liver function studies were last obtained on 11/28/2016 and were overall within normal limits. The patient's CBC shows a white count of 8.3, hemoglobin 12.8, hematocrit 43.4, platelets 179. IMPRESSION A 61-year-old black female with need for bypass feeds and nutritional support. She is having a tracheostomy tomorrow and possibly with general anesthesia. She may have a higher likelihood of being successful in terms of placement of the percutaneous endoscopic gastrostomy tube for bypass feeds and nutritional support. We discussed all with her son, Severo Pickett, at [phone]. We explained to him all that occurred today and all the risks and benefits of the procedure including the risk of bleeding, infection, inability to place the percutaneous endoscopic gastrostomy tube, intraabdominal injury, requiring exploratory laparotomy, additional surgery, open gastrostomy tube at a different time, , and other risks. He understands and requests to proceed. Dictated by... Solo Rivera/nanda TD: 12/01/2016 01:58 JOB #: [id number] CC: Katie Peguero M.D. [facility] Nahun Cardona M.D. CONSULTATION REPORT X Jez Cat MD X CONSULTATION REPORT
--- NOTE | ~2016-11-20 | TOC ---
Unit #: [id number] #: [id number] Patient: KATLYN EASLEY [id number] [address] [place], [place] [address] [id number] I MR#: [id number] NAME: KATLYN EASLEY ROOM: [facility] Age: 61 Sex: F Admission Date: 11/21/2016 : 1955 Attending Physician: Elizabeth Chamberlain M.D. Primary Care Physician: No Primary Care Physician TRANSFER OF CARE SUMMARY DISCHARGE DIAGNOSES 1. Acute hypercapnic hypoxic respiratory failure. 2. Acute diastolic heart failure. 3. Severe obstructive sleep apnea. 4. Atrial fibrillation, heparin on hold secondary to percutaneous endoscopic gastrostomy tube placement today. 5. Status post tracheostomy on December 01, 2016. The patient is going for percutaneous endoscopic gastrostomy tube today. 6. Hypertension, uncontrolled. 7. Transaminitis, most likely secondary to heart failure. 8. Hypernatremia on water flushes. 9. Mild protein malnutrition. 10. Morbid obesity. CONSULTATIONS 1. Dr. Peguero. 2. Dr. Howell. 3. Dr. Cardona. 4. Dr. Montenegro. 5. Dr. Tovar. PROCEDURES 1. On November 21, patient had central venous catheter placement. 2. On November 30, patient had EGD which showed moderate gastritis. 3. On December 01, patient had tracheostomy. 4. On December 01, patient had an EGD for PEG tube placement but unable to place. DIAGNOSTIC STUDIES LABORATORY: Glucose 98, sodium 150, potassium 4.4, creatinine 1.4. Sputum cultures: Normal growth. WBC 9.5, hemoglobin 13.5, platelets 197,000. ABG: A pH 7.47, carbon dioxide 65, oxygen 79. Blood cultures negative. IMAGING: Ultrasound of the extremities negative for DVT. HOSPITALIZATION COURSE A 61 year old admitted because of shortness of breath. Acute hypercapnic hypoxic respiratory failure from heart failure, COPD, and obstructive sleep apnea: Currently, patient is status post tracheostomy. Patient was intubated before that. She failed at least five to six times weaning so Dr. Root wanted her to have tracheostomy. Unit #: [id number] #: [id number] Patient: KATLYN EASLEY Acute diastolic heart failure: The patient was seen by Dr. Tovar. The patient received diuretics. Currently stable. Continue with Bumex drip. Severe obstructive sleep apnea: Needing tracheostomy. Monitor her ABGs. Atrial fibrillation: Patient was on Coumadin but later changed her heparin secondary to tracheostomy and PEG tube placement. Currently, heparin is on hold secondary to PEG tube placement. Hypernatremia, secondary to dehydration: The patient will continue with DW and water flushes once PEG tube placed. Mild protein malnutrition with moderate obesity: The patient is being seen by target developer. The patient will have PEG tube placement today. The patient needs [facility]. The patient might need 21 days to go to [place], according to medical case worker who is working on that. Dictated by... Solo Arreola/jose TD: 12/02/2016 12:12 JOB #: [id number] TRANSFER OF CARE SUMMARY X Elizabeth Chamberlain MD TRANSFER OF CARE SUMMARY
--- NOTE | ~2016-11-20 | EKG ---
PATIENT: KATLYN EASLEY UNIT #: [id number] Ventricular Rate: 110 BPM Atrial Rate: 85 BPM QRS Duration: 80 ms Q-T Interval: 312 ms QTC Calculation(Bezet): [address]: [address]: -68 degrees Diagnosis Line: Atrial fibrillation with rapid ventricular Diagnosis Line: response Diagnosis Line: Nonspecific T wave abnormality , probably Diagnosis Line: digitalis effect Diagnosis Line: Abnormal ECG Diagnosis Line: When compared with ECG of 20-NOV-2016 18:12, Diagnosis Line: QRS axis Shifted left Diagnosis Line: Nonspecific T wave abnormality no longer evident Diagnosis Line: in Anterior leads Diagnosis Line: Confirmed by LAURA ARMAS MD ([id number]) on Diagnosis Line: 11/28/2016 10:55:27 PM INTERPRETING MD: VINCENT
--- NOTE | ~2016-11-20 | CR72 ---
[facility] A Service of [facility] & [facility] RADIOLOGY TEXT RESULTS PATIENT: KATLYN EASLEY LOCATION: [place] [address]10 : 54 UNIT #: [id number] AGE: [address]: Elizabeth Chamberlain MD SEX: F ORDER DR: [id number] [facility] [address] [facility]. [place], [place] [address] [id number] I MR#: [id number] Acc #: [id number] NAME: KATLYN EASLEY : 1955 SEX: F STUDY DATE/TIME: 11/26/2016 5:45 UNIT: [facility] ROOM: [facility] STUDY DESCRIPTION: CR Chest Single View Portable Attending Physician: Elizabeth Chamberlain M.D. Ordering Physician: Katie Peguero M.D. Primary Care Physician: No Primary Care Physician MEDICAL IMAGING REPORT This report is preliminary unless electronic signature is present EXAM Portable chest HISTORY Acute CHF, intubated. COMPARISON 11/25/2016 FINDINGS Portable view of the chest demonstrates tubes and lines in satisfactory position and unchanged. Improved lung volumes. Slight decrease in pulmonary vascular congestion though there is continued marked cardiomegaly with diffuse pulmonary congestion. Probable left pleural effusion. No pneumothorax. Dictated by... Monalisa Ruiz M.D. THIS IS AN ELECTRONICALLY VERIFIED REPORT Monalisa Ruiz M.D. at 11/26/2016 3:04 PM JACKLYN/becca TD: 11/26/2016 13:29 JOB #: [id number] MEDICAL IMAGING REPORT COPY
--- NOTE | ~2016-11-20 | CR72 ---
[facility] A Service of [facility] RADIOLOGY TEXT RESULTS PATIENT: KATLYN EASLEY LOCATION: [place] [address] : 54 UNIT #: [id number] AGE: [address]: Shubham Dennison MD SEX: F ORDER DR: [id number] [place] [id number] [facility] [place] [facility]. [place], [place] [address] [id number] I MR#: [id number] Acc #: [id number] NAME: KATLYN EASLEY : 1955 SEX: F STUDY DATE/TIME: 12/07/2016 10:52 UNIT: [facility] ROOM: [facility] STUDY DESCRIPTION: CR Chest Single View Portable Attending Physician: Shubham Dennison M.D. Ordering Physician: Reyes Ortiz M.D. Primary Care Physician: Primary Care Physician No MEDICAL IMAGING REPORT This report is preliminary unless electronic signature is present EXAM Frontal chest, 12/07/2016 INDICATION PICC line placement. Respiratory failure. Symptoms since November 21. Hypertension, COPD. TECHNIQUE Frontal chest COMPARISON 12/06/2016 FINDINGS Tracheostomy tube in good position above the nery. There is a right-sided PICC line that once again demonstrates a coarse cephalad over the neck soft tissues and right lung apex likely within the internal jugular vein on the right. The appearance is unchanged. The heart is enlarged. There is vascular congestion and interstitial edema. No pneumothorax. IMPRESSION 1. The right-sided PICC line remains at the level of the internal jugular vein, the tip is not included in the field of view. Findings also were called to the covering nurse for the patient as the patient's regular nurse could not take my call at the time of this dictation. 2. No pneumothorax. 3. Cardiomegaly with vascular congestion and interstitial edema is unchanged. STAT * RESULT [facility] A Service of [facility] & [facility] RADIOLOGY TEXT RESULTS PATIENT: KATLYN EASLEY LOCATION: [address] : [birth year] UNIT #: [id number] AGE: [address]: Shubham Dennison MD SEX: F ORDER DR: Dictated by... Branden Murray M.D. THIS IS AN ELECTRONICALLY VERIFIED REPORT Branden Murray M.D. at 12/07/2016 4:51 PM Trae TD: 12/07/2016 11:39 JOB #: [id number] MEDICAL IMAGING REPORT COPY
--- NOTE | ~2016-11-20 | CO ---
Unit #: [id number] #: [id number] Patient: KATLYN EASLEY [id number] [address] [place], [place] [address] [id number] I MR#: [id number] NAME: KATLYN EASLEY ROOM: [facility] Age: 61 Sex: F Admission Date: 11/21/2016 : 1955 Attending Physician: Elizabeth Chamberlain M.D. Primary Care Physician: No Primary Care Physician CONSULTATION REPORT REVISED REPORT REASON FOR CONSULTATION Critical care management. CHIEF COMPLAINT Shortness of breath. HISTORY OF PRESENT ILLNESS This patient is a 61-year-old female brought to the emergency room with a complaint of altered mental status, shortness of breath and was found to be acutely confused and delirious and was in acute respiratory failure this morning with severe respiratory acidosis. The patient was intubated by myself with size 8 endotracheal tube with difficult intubation. Used help of an Eschmann catheter and apparently intubated, sedated. PAST MEDICAL HISTORY 1. Atrial fibrillation. 2. Heart failure. 3. Hypertension. SURGICAL HISTORY 1. Hysterectomy. 2. Cholecystectomy. SOCIAL HISTORY Unable to obtain. FAMILY HISTORY Unable to obtain. HOME MEDICATIONS 1. Cartia. 2. Toprol. 3. Lasix. 4. Potassium. ALLERGIES No known drug allergies. PHYSICAL EXAMINATION VITAL SIGNS: Temperature 98, pulse 110, respirations 20, blood pressure 132/80. Intubated, sedated. CVS: S1+ S2. Unit #: [id number] #: [id number] Patient: KATLYN EASLEY RESPIRATIONS: Bilateral air entry, bilateral rhonchi. GI: Nontender, soft. Bowel sounds positive. EXTREMITIES: Positive edema, positive rash in the skin folds. MUSCULOSKELETAL: (1) deformity. DIAGNOSTIC STUDIES LABORATORY: Blood gas - pH of 7.23, pCO2 is 96, pO2 was 74, O2 sat 89. Creatinine is 1.6, sodium 137, potassium is 4.0, chloride 95, bicarb is 31. ALT 98, AST 143. BNP was 633, INR is 1.4. White count is 11, hemoglobin 16, hematocrit 54, platelet count is 217. IMAGING: Chest x-ray - bilateral pulmonary edema. ASSESSMENT AND PLAN 1. Acute hypoxic/hypercapnic respiratory failure. 2. Acute exacerbation of congestive heart failure. 3. Morbid obesity. 4. Likely aspiration pneumonia. 5. Altered mental status. 6. Critically ill patient. Plan is to admit the patient. Continue diuretics and continue ventilator support. Broad spectrum IV antibiotics. GI and DVT prophylaxis. Cardiology consultation. Will ask for 2D echo. The patient will be closely monitored. Please see orders for detail plan. Will need a CT of her head and neuro (2) as per protocol and once off the sedation. The patient will be closely monitored. Critical care time is 75 minutes in direct critical care of this patient. Dictated by... Solo Benson/norberto TD: 11/21/2016 08:54 JOB #: [id number] CC: Amy/invision Please Delete CONSULTATION REPORT X Katie Peguero MD X CONSULTATION REPORT
--- NOTE | ~2016-11-20 | CR72 ---
[facility] A Service of [facility] & [facility] RADIOLOGY TEXT RESULTS PATIENT: KATLYN EASLEY LOCATION: [address] : [birth year] UNIT #: [id number] AGE: [address]: Elizabeth Chamberlain MD SEX: F ORDER DR: [id number] [facility] [address] [facility] [address]. [place], [place] [address] [id number] I MR#: [id number] Acc #: [id number] NAME: KATLYN EASLEY : 1955 SEX: F STUDY DATE/TIME: 11/28/2016 UNIT: [facility] ROOM: [facility] STUDY DESCRIPTION: CR Chest Single View Portable Attending Physician: Elizabeth Chamberlain M.D. Ordering Physician: Katie Peguero M.D. Primary Care Physician: Primary Care Physician No MEDICAL IMAGING REPORT This report is preliminary unless electronic signature is present EXAM Portable chest 11/28 at 02:36 INDICATIONS Respiratory failure and heart failure. Atrial fibrillation. FINDINGS AP portable chest compared with 11/27/2016. ET tube and left IJ line are in good position. Cardiomegaly and mediastinal widening are stable. There is continued central vascular congestion and there is some infiltrate in both lower lung zones. This may reflect pneumonia or potentially edema. No pneumothorax is seen. Dictated by... Ryley Brown Jr., M.D. THIS IS AN ELECTRONICALLY VERIFIED REPORT Ryley Brown Jr., M.D. at 11/28/2016 9:59 PM GIOVANNI/mattie TD: 11/28/2016 07:38 JOB #: [id number] MEDICAL IMAGING REPORT COPY
--- NOTE | ~2016-11-20 | CR72 ---
[facility] A Service of [facility] & [facility] RADIOLOGY TEXT RESULTS PATIENT: KATLYN EASLEY LOCATION: [address] : [birth year] UNIT #: [id number] AGE: [address]: Elizabeth Chamberlain MD SEX: F ORDER DR: [id number] [place] [id number] [facility] [place] [facility]. [place], [place] [address] [id number] I MR#: [id number] Acc #: [id number] NAME: KATLYN EASLEY : 1955 SEX: F STUDY DATE/TIME: 11/21/2016 8:39 UNIT: [facility] ROOM: [facility] STUDY DESCRIPTION: CR Chest Single View Portable Attending Physician: Elizabeth Chamberlain M.D. Ordering Physician: Katie Peguero M.D. Primary Care Physician: Primary Care Physician No MEDICAL IMAGING REPORT This report is preliminary unless electronic signature is present ADDENDUM In the impression of the report it erroneously stated that it was a right IJ central venous catheter. The catheter is a left IJ central venous catheter. JOB #: [id number] Dictated by... Adis Ruiz M.D. THIS IS AN ELECTRONICALLY VERIFIED REPORT Adis Ruiz M.D. at 11/23/2016 4:06 PM López TD: 11/23/2016 11:25 JOB #: [id number] MEDICAL IMAGING REPORT COPY
--- NOTE | ~2016-11-20 | CR72 ---
[facility] A Service of [facility] & [facility] RADIOLOGY TEXT RESULTS PATIENT: KATLYN EASLEY LOCATION: [place] [address] : [birth year] UNIT #: [id number] AGE: [address]: Elizabeth Chamberlain MD SEX: F ORDER DR: [id number] [facility] [address] [place], [place] [address] [id number] I MR#: [id number] Acc #: [id number] NAME: KATLYN EASLEY : 1955 SEX: F STUDY DATE/TIME: 11/27/2016 0240 UNIT: [facility] ROOM: [facility] STUDY DESCRIPTION: CR Chest Single View Portable Attending Physician: Elizabeth Chamberlain M.D. Ordering Physician: Katie Peguero M.D. Primary Care Physician: No Primary Care Physician MEDICAL IMAGING REPORT This report is preliminary unless electronic signature is present EXAM Portable chest, 11/27 at 0240. INDICATION Respiratory failure. CHF. History of hypertension and atrial fibrillation. FINDINGS AP portable chest compared with 11/26/2016. ET tube and left IJ line are unchanged in position. Marked cardiomegaly is stable as is vascular congestion. Very mild degree of pulmonary edema is present and unchanged. Small volume of right pleural fluid is present. No pneumothorax. Dictated by... Ryley Brown Jr., M.D. THIS IS AN ELECTRONICALLY VERIFIED REPORT Ryley Brown Jr., M.D. at 11/27/2016 8:39 PM GIOVANNI/steve TD: 11/27/2016 10:42 JOB #: [id number] MEDICAL IMAGING REPORT COPY
--- NOTE | ~2016-11-20 | OR ---
Unit #: [id number] #: [id number] Patient: KATLYN EASLEY [id number] [address] [place], [place] [address] [id number] I MR#: [id number] NAME: KATLYN EASLEY ROOM: [facility] Date of Procedure: 12/01/2016 Admission Date: 11/21/2016 Surgeon: Jez Cat M.D. : 1955 Attending Physician: Elizabeth Chamberlain M.D. Primary Care Physician: Primary Care Physician No OPERATIVE REPORT PREOPERATIVE DIAGNOSES Need for bypass feeds and nutritional support. POSTOPERATIVE DIAGNOSES Need for bypass feeds and nutritional support. PROCEDURE PERFORMED Esophagogastroduodenoscopy. ANESTHESIA Monitored anesthesia with general endotracheal anesthesia. FINDINGS The patient was found to have mild gastritis. We were unable to find a place where we were able to safely place the percutaneous endoscopic gastrostomy tube. SPECIMENS None. COMPLICATIONS None apparent. CONDITION The patient tolerated the procedure well. INDICATIONS FOR PROCEDURE The patient is a 59-year-old black female. She had attempted PEG tube placement by Dr. Cardona of GI medicine yesterday. He was then able to find a place using monitored anesthesia care in the intensive care unit where a PEG tube could safely be placed. The patient is scheduled for tracheostomy today. We explained that we would attempt to see using general anesthesia if there might be an area that is amenable to PEG tube placement. DESCRIPTION OF PROCEDURE After obtaining informed consent from the patient's son as well as receiving scheduled antibiotics, the patient was brought in the operating room and after adequate general endotracheal anesthesia was obtained, had the endoscope placed through the mouth into the upper esophagus under direct vision. It was advanced to the second portion of the duodenum without difficulty with the lumen always in view. The duodenum was normal Unit #: [id number] #: [id number] Patient: KATLYN EASLEY as was the duodenal bulb. The pylorus opened normally. There was some mild distal gastritis present. On retroflexion back to the GE junction, no other abnormalities were seen. The Dobbhoff tube was seen curled in the mid stomach. At this point in time, even with general endotracheal anesthesia, the patient's abdomen was very firm and distended. We were unable to see the light anywhere in the upper abdomen. In addition, on palpation, we could not see the digital depression well in any area that we feel comfortable safely placing a PEG tube. As a result, the endoscope was pulled back above the GE junction. There is no stenosis, stricture, or neoplasm seen. The remaining portion of the esophagus appeared within normal limits. We were unable to visualize laryngeal structures. The patient tolerated the procedure well. Dictated by... Solo Rivera/nanda TD: 12/01/2016 22:30 JOB #: [id number] CC: [facility] OPERATIVE REPORT X Jez Cat MD X PROCEDURE OPERATIVE NOTE
--- NOTE | ~2016-11-20 | CO ---
Unit #: [id number] #: [id number] Patient: KATLYN PICKETT [id number] [address] [place], [place] [address] [id number] I MR#: [id number] NAME: KATLYN PICKETT ROOM: [facility] Age: 61 Sex: F Admission Date: 11/21/2016 : 1955 Attending Physician: Shuhbam Dennison M.D. Primary Care Physician: Nupur Primary Care Physician Consultation Date: 12/07/2016 CONSULTATION REPORT REASON FOR CONSULT Renal insufficiency, decreased urine output. Thank you very much for asking me to see this patient in consultation. HISTORY OF PRESENT ILLNESS Ms. Pickett is a 61-year-old -Polish female who was admitted on November 21 with increased shortness of breath, increased confusion. Subsequently, was intubated. After prolonged intubation, underwent a tracheostomy. Apparently, they tried to put a feeding tube in, unable to do endoscopically and an open gastrostomy tube was placed. Apparently, it became leaking and patient had fecal peritonitis. Underwent exploratory laparotomy yesterday and then had a colostomy done, open wound. Patient is still intubated, decreased response although sedated. We were asked to see the patient secondary to decreasing urine output and increasing BUN and creatinine of 49 and 1.4 today. Creatinine was 1.1 yesterday. In actuality when she presented, her creatinine was 1.6. It did improve all the way down to 1.1 before worsening. She has also had some decreased urine output over the last several days. The patient has intermittently been on IV Bumex including a Bumex drip and intermittent Bumex up until several days ago for being fluid overloaded. PAST MEDICAL HISTORY 1. History of atrial fibrillation. 2. History of hypertension. 3. History of obstructive sleep apnea. 4. History of congestive heart failure. 5. Status post cholecystectomy. 6. Status post hysterectomy. 7. Of course, the history with current hospitalization. ALLERGIES No known drug allergies. SOCIAL HISTORY No alcohol. Questionable smoking, amount unknown. FAMILY HISTORY Unable to obtain. REVIEW OF SYSTEMS As mentioned in the HPI. Again, rest unable to obtain. CURRENT MEDICATIONS Unit #: [id number] #: [id number] Patient: KATLYN PICKETT 1. D5W at 50 mL an hour. 2. Lanoxin 0.125 daily. 3. Metronidazole. 4. Diflucan. 5. Lopressor 2.5 mg IV q. 6. 6. Merrem. 7. Tylenol. 8. Protonix 40 mg IV daily. 9. Seroquel. 10. Fentanyl. PHYSICAL EXAMINATION GENERAL: She is sedated. VITAL SIGNS: T-max is 101.9, pulse 105 to 145, blood pressure 67 to 125 over 50s to 80s (last check it was 102/56 with a pulse of 109). She had 1080 in and 830 out. Over the last several days, she has had about 4 L more in than out, although prior to that every day she had more out than in. HEENT: She is normocephalic and atraumatic. Her pupils are equal, round, reactive to light. She is trached on the vent, decreased responsiveness. CARDIAC: She is tachycardic without a rub. No S3, S4. LUNGS: Have bilateral rhonchi. ABDOMEN: Ostomy present. Wound dressed. Bowel sounds are positive. Very obese. Positive body edema. EXTREMITIES: She had some mild lower extremity edema. Pulses are intact upper and lower extremities. JOINTS: No evidence of any joint swelling. GENITOURINARY: Duncan catheter is in place. DIAGNOSTIC STUDIES LABORATORY: Last check showed an ABG with pH of 7.462, pCO2 of 51, pO2 of 90 on 40%. Hemoglobin is 12.2, white count 12,200, platelets 200,000. Glucose is 87. Albumin 1.8. Sodium is 151, potassium 4.5, CO2 of 35, BUN 49, creatinine 1.4. IMAGING: Chest x-ray showed cardiomegaly, some positive edema bilaterally. ASSESSMENT AND PLAN 1. Acute kidney injury: This lady has had worsening increased BUN and creatinine again. Certainly, she does have positive edema on exam, although this could be related to low albumin and poor nutrition, although certainly could be just from fluid overloaded as well. Due to her chest x-ray showing pulmonary edema and her physical exam, I am going to put her back on some Bumex for now 2 mg, I believe, IV q.6 although I am going to give her some D5W and increase that rate due to some water deficit as will mention below. Will check a urinalysis, culture and sensitivity, urine eosinophils, random urine sodium. Will keep her on her proton pump inhibitor for now but if renal function worsens, will maybe consider changing that to Pepcid. Will follow. She also was noted to be on vancomycin up until several days ago and I do not know if this is playing a role either. I suspect she potentially most likely has acute tubular necrosis from her abdominal sepsis peritonitis contributing to her acute renal insufficiency. 2. Hypernatremia: The patient with increased sodium of 151. Agree with D5W and she appears to probably had a free water deficit. Will go ahead and increase that up to 100 mL an hour but due to the pulmonary Unit #: [id number] #: [id number] Patient: KATLYN PICKETT edema will keep her on some Bumex for now. Will see how her output does and see what her labs look like in the morning. I doubt she has diabetes insipidus. Will check a urine osmolality. 3. Status post colostomy, open wound with peritonitis. 4. Respiratory failure on vent/trach. Dictated by.Montse Warren M.D. DONITA/jose TD: 12/08/2016 11:50 JOB #: [id number] CONSULTATION REPORT X Faizan Warren MD X CONSULTATION REPORT
--- NOTE | ~2016-11-20 | CR72 ---
[facility] A Service of [facility] & [facility] RADIOLOGY TEXT RESULTS PATIENT: KATLYN EASLEY LOCATION: [place] [address]10 : [birth year] UNIT #: [id number] AGE: [address]: Elizabeth Chamberlain MD SEX: F ORDER DR: [id number] [facility] [address] [facility]. [place], [place] [address] [id number] I MR#: [id number] Acc #: [id number] NAME: KATLYN EASLEY : 1955 SEX: F STUDY DATE/TIME: 11/24/2016 5:23 UNIT: [facility] ROOM: [facility] STUDY DESCRIPTION: CR Chest Single View Portable Attending Physician: Elizabeth Chamberlain M.D. Ordering Physician: Elizabeth Chamberlain M.D. Primary Care Physician: Primary Care Physician No MEDICAL IMAGING REPORT This report is preliminary unless electronic signature is present EXAM Portable chest 11/24/2016 HISTORY Congestive heart failure, acute respiratory failure, onset 11/21/2016, short of breath. Benign essential hypertension, atrial fibrillation. FINDINGS The heart is enlarged but stable compared with 11/23/2016. There has been no change in the position of the life support equipment. There are bilateral pleural effusions layering posteriorly with bibasilar infiltrates or atelectasis. Pulmonary edema is essentially unchanged. IMPRESSION No interval change compared with 11/23/2016. Dictated by... Ken Childs M.D. THIS IS AN ELECTRONICALLY VERIFIED REPORT Ken Childs M.D. at 11/24/2016 10:16 PM PALOMA/bonifacio TD: 11/24/2016 06:39 JOB #: [id number] MEDICAL IMAGING REPORT COPY
--- NOTE | ~2016-11-20 | OR ---
Unit #: [id number] #: [id number] Patient: KATLYN EASLEY [id number] [address] [address] [id number] I MR#: [id number] NAME: KATLYN EASLEY ROOM: [facility] Date of Procedure: 12/05/2016 Admission Date: 11/21/2016 Surgeon: Dorene Root M.D. : 1955 Attending Physician: Elizabeth Chamberlain M.D. Primary Care Physician: Primary Care Physician No PROCEDURE OPERATIVE NOTE PROCEDURE Diagnostic and therapeutic bronchoscopy with bronchial washing. INDICATION FOR PROCEDURE Mucous plug and pneumonia. PREOPERATIVE DIAGNOSIS Cmxfa-wy-bbxvrxv hypercarbic hypoxic respiratory failure. COMPLICATIONS None. DESCRIPTION OF THE PROCEDURE An informed consent was obtained from the patient's son after explaining the benefits and risks of this procedure. The procedure was done in ICU at bedside. The patient was on fentanyl drip and was given also 2 mg of Versed prior to the procedure. Then, the bronchoscope was advanced through the tracheostomy tube and at the level of the nery 1% lidocaine was instilled and the bronchoscope was advanced into the right main bronchus and decent size mucous plugs that appeared greenish in color was obstructing the right lower lobe extending into the right main bronchus which was lavaged and aspirated out. Then, bronchial washing was obtained from the right lower lobe, right upper lobe and right middle lobe were examined and appeared normal except from the mucous plugs in the right lower lobe. The bronchoscope was retracted and then readvanced into the left main bronchus and the left upper lobe, lingula and left lower lobe were examined which appeared normal with minimal secretions. The bronchoscope was retracted out then and she tolerated the procedure well with no immediate complications. Dictated by... Dorene Root M.D. Unit #: [id number] #: [id number] Patient: KATLYN EASLEY BITA/aimee TD: 12/05/2016 17:27 JOB #: [id number] PROCEDURE OPERATIVE NOTE X DORENE MOORE MD X PROCEDURE OPERATIVE NOTE
--- NOTE | ~2016-11-20 | CR72 ---
[facility] A Service of [facility] & [facility] & [facility] RADIOLOGY TEXT RESULTS PATIENT: KATLYN EASLEY LOCATION: [address] : [birth year] UNIT #: [id number] AGE: [address]: Shubham Dennison MD SEX: F ORDER DR: [id number] [facility] [address] [facility] [place], [place] [address] [id number] I MR#: [id number] Acc #: [id number] NAME: KATLYN EASLEY : 1955 SEX: F STUDY DATE/TIME: 12/04/2016 4:53 UNIT: [facility] ROOM: [facility] STUDY DESCRIPTION: CR Chest Single View Portable Attending Physician: Elizabeth Chamberlain M.D. Ordering Physician: Elizabeth Chamberlain M.D. Primary Care Physician: Primary Care Physician No MEDICAL IMAGING REPORT This report is preliminary unless electronic signature is present EXAM Portable AP view of the chest COMPARISON December 01, 2016, November 30, 2016, November 29, 2016. INDICATIONS 61-year-old female with heart failure and respiratory failure for 13 days. Tracheostomy on December 01 2016. FINDING/IMPRESSION Tracheostomy cannula terminates 2.6 cm above the nery. Right upper extremity PICC terminates in the SVC. There is stable cardiomegaly and mediastinal widening. No evidence of pneumothorax. There are improved right perihilar opacities with slight improved left upper lobe and lingular opacities, with residual left lower lobe opacities and these findings may reflect improving pneumonia or pulmonary edema. There may be persistent small left pleural effusion. Feeding tube has been removed. Dictated by... Chung Davidson M.D. THIS IS AN ELECTRONICALLY VERIFIED REPORT Chung Davidson M.D. at 12/07/2016 7:04 AM Reese TD: 12/04/2016 10:50 JOB #: [id number] MEDICAL IMAGING REPORT COPY
--- NOTE | ~2016-11-20 | CR72 ---
[facility] A Service of [facility] & [facility] RADIOLOGY TEXT RESULTS PATIENT: KATLYN EASLEY LOCATION: [place] [address] : [birth year] UNIT #: [id number] AGE: [address]: Elizabeth Chamberlain MD SEX: F ORDER DR: [id number] [facility] [address] [facility] [place], [place] [address] [id number] I MR#: [id number] Acc #: [id number] NAME: KATLYN EASLEY : 1955 SEX: F STUDY DATE/TIME: 11/30/2016 02:55 UNIT: [facility] ROOM: [facility] STUDY DESCRIPTION: CR Chest Single View Portable Attending Physician: Elizabeth Chamberlain M.D. Ordering Physician: Elizabeth Chamberlain M.D. Primary Care Physician: Primary Care Physician No MEDICAL IMAGING REPORT This report is preliminary unless electronic signature is present EXAM Portable chest 11/30 0255 hours INDICATIONS Respiratory failure and heart failure. Ventilator patient. FINDINGS AP portable chest is compared with 11/29/2016. ET tube mid trachea. Right arm PICC near the right atrial level. Cardiomegaly is unchanged. There is vascular congestion and there has been slight interval worsening of pulmonary edema. There is probably a small left effusion. No pneumothorax. Dictated by... Ryley Brown Jr., M.D. THIS IS AN ELECTRONICALLY VERIFIED REPORT Ryley Brown Jr., M.D. at 11/30/2016 3:56 PM GIOVANNI/vibha TD: 11/30/2016 06:26 JOB #: [id number] MEDICAL IMAGING REPORT COPY
--- NOTE | ~2016-11-20 | OR ---
Unit #: [id number] #: [id number] Patient: KATLYN EASLEY [id number] [address] [place], [place] [address] [id number] I MR#: [id number] NAME: KATLYN EASLEY ROOM: [facility] Date of Procedure: 11/21/2016 Admission Date: 11/21/2016 Surgeon: Katie Peguero M.D. : 1955 Attending Physician: Elizabeth Chamberlain M.D. Primary Care Physician: Nupur Primary Care Physician PROCEDURE OPERATIVE NOTE PROCEDURE PERFORMED Endotracheal intubation. DETAILS OF THE PROCEDURE After placing patient in a proper position with the help of 20 mg of etomidate and 4 mg of versed, we placed a size 8 endotracheal tube with the help of Eschmann catheter under direct visualization of the vocal cord. Good color change on entire CO2 monitor. Patient tolerated the procedure very well. Chest x-ray was ordered. Dictated by... Solo Benson/norberto TD: 11/21/2016 09:14 JOB #: [id number] PROCEDURE OPERATIVE NOTE X Katie Peguero MD PROCEDURE OPERATIVE NOTE
--- NOTE | ~2016-11-20 | FU ---
[facility] Nutrition Therapy DATE: 11/29/16 Patient: KATLYN EASLEY Physician: HARIS Address: [address] [facility] Room/Bed: [address], Zip: [place] [address] Admit Date: 11/21/16 Date of : [birth year] Height: 5 7 Weight: 465 211.2 NUTRITION MONITORING/FOLLOW-UP: Reason: Enteral nutrition follow up Anthropometrics: Ht: 67" Wt: 229 kg BMI: 78.8 IBW: 61 kg Adj IBW: 115 kg Wt 11/29: 211.2 kg Labs: Cl- 91 Na+ 146 Gluc 119 BUN 46 AST 49 Accuchecks 123-140 Meds: Fentanyl, versed, bumex, senokot, colace, KCl, protonix, zofran, MgSO4, KCl, mag-ox, D5%, spironolactone, lopressor I&O's: 2976/4277, last BM 11/29, DHT in place Skin: Noted Edema: Pedal/ ankle trace BUE/ hands generalized Estimated Nutrition Needs: 1331-7953 kcals (22-25 grams/kg Adj BW) 122-153 grams protein (2.0-2.5 grams/ kg IBW) Assessment: Chart reviewed, events noted. Pt remains intubated and sedated in the ICU. EH ran out of Vital HP yesterday, and Vital 1.5 is currently being used in it's place. Pt is tolerating Vital 1.5 @ 75 mL/hr, which is providing 2700 kcals/ 122 grams protein. Per pump history, the pt has received 96% of the goal volume of enteral nutrition. Vital 1.5 @ 75 mL/hr is not exceeding the pt's kcal needs and is meeting her protein needs; therefore, RD recommended to contine the current rate. MD ordered free H20 flushes 250 mL q 6 hrs, as the pt's sodium levels were elevated this AM. Vital HP will be back in stock tomorrow per RD conversation with pharmacy staff. Nutrition diagnosis remains. Dx: Inadequate oral intake RT Dx, clinical condition AEB intubated and sedated, pt receiving enteral nutrition.- UNCHANGED Intervention: 1. Enteral nutrition 2. Free H20 Monitoring, Evaluation and Goals: [facility] Nutrition Therapy DATE: 11/29/16 Patient: KATLYN EASLEY Physician: HARIS Address: [address] [facility] Room/Bed: [address], Zip: [place] [address] Admit Date: 11/21/16 Date of : [birth year] Height: 5 7 Weight: 465 211.2 1. Enteral nutrition; provide >80% goal volume 2. Labs; WNL 3. Weight; promote gradual weight loss once medically feasible 4. Skin; promote healing, prevent breakdown Recommendations: 1. Continue enteral nutrition with Vital 1.5 @ 75 ml/hr until Vital HP is back in stock (will be tomorrow morning per pharmacy report). Then resume Vital HP @ 75 mL/hr to provide additional protein. Vital HP @ 75 mL/hr will provide: 1800 kcals/ 157 grams protein/ 1512 mL free H20 2. Free H20 flushes per MD orders. Elevated sodium levels noted. 3. If the pt is extubated, recommend LINER ROLL CHANGER evaluation to determine if the pt can safely tolerate PO intake. Advance diet per LINER ROLL CHANGER recommendations + heart healthy diet restriction. Status: Pt is at moderate-severe nutritional risk. Respectfully, SCOTT HENRY RD, LD [employer] [facility] [employer] cc: client file
--- NOTE | ~2016-11-20 | US84 ---
[id number] [facility] [address] [place], [place] [address] [id number] I MR#: [id number] Acc #: [id number] NAME: KATLYN EASLEY : 1955 SEX: F STUDY DATE/TIME: 11/21/2016 20:18 UNIT: [facility] ROOM: [facility] STUDY DESCRIPTION: US LE Veins Complete Abraham Stdy Attending Physician: Elizabeth Chamberlain M.D. Ordering Physician: Katie Peguero M.D. Primary Care Physician: Primary Care Physician No MEDICAL IMAGING REPORT This report is preliminary unless electronic signature is present EXAM Bilateral lower extremity venous ultrasound, 11/21/2016 HISTORY Atrial fibrillation. Acute CHF, hypertension, started on blood thinners today. TECHNIQUE Venous ultrasound examination of both lower extremities was performed using grayscale, spectral Doppler and color flow Doppler imaging. FINDINGS The examination is negative. There is no evidence of deep venous thrombus from the groin to the lower calf bilaterally. Visualized greater saphenous veins are also patent. IMPRESSION Negative examination. No evidence of lower extremity deep venous thrombosis. Dictated by... Severo Aldana M.D. THIS IS AN ELECTRONICALLY VERIFIED REPORT Severo Aldana M.D. at 11/23/2016 10:50 PM MAYO/juliana TD: 11/22/2016 01:55 JOB #: [id number] MEDICAL IMAGING REPORT COPY
--- NOTE | ~2016-11-20 | OR ---
Unit #: [id number] #: [id number] Patient: KATLYN EASLEY [id number] [address] [place], [place] [address] [id number] I MR#: [id number] NAME: KATLYN EASLEY ROOM: [facility] Date of Procedure: 12/06/2016 Admission Date: 11/21/2016 Surgeon: Drew Ramos Jr., M.D. : 1955 Attending Physician: Shubham Dennison M.D. Primary Care Physician: Primary Care Physician No OPERATIVE REPORT INDICATION FOR PROCEDURE The patient is a 61-year-old black female, who has had multiple medical problems, recently underwent a laparotomy with placement of gastrostomy tube. She also has had a tracheostomy for respiratory failure. The patient is massively obese and after her placement of gastrostomy appears to have had a perforation of her colon now with some free air and fluid in the abdomen. At the time of her G-tube placement and exploration, she was noted to have an extremely dilated transverse colon with very thin wall. She was brought to the operating room at this time for exploratory laparotomy, possible colostomy. Informed consent has been obtained. PREOPERATIVE DIAGNOSIS Probable colon perforation. POSTOPERATIVE DIAGNOSIS Probable colon perforation, noting a small 1 cm perforation of the transverse colon. ANESTHESIA General. SCHEDULE MANAGER Gina Carrillo. PROCEDURES PERFORMED Exploratory laparotomy, transverse colostomy with extensive sharp debridement of her wound using a #10 blade scalpel and closure. DESCRIPTION OF PROCEDURE The patient was positioned in supine position. After being anesthetized with her tracheostomy, she was prepped and draped in routine fashion for exploration through a midline incision. The valerie from her wound were removed and there was some stool draining from the wound. The fascial stitches were removed. The wound was irrigated and all stool was removed. The colon was decompressed obviously with a small 1 cm hole in the central portion of it and some thickening around it. Abdomen was copiously irrigated with saline solution. The transverse colon was freed up, multiple vessels were clamped, divided, and ligated in the area of the mesentery and the colon was then transected with a 75 mm ROSELYN stapler. The distal limb of this was left stapled, proximal limb also for now was left stapled. The gastrostomy tube was checked and was in good position with no evidence of any disruption or problems. A circular incision was then Unit #: [id number] #: [id number] Patient: KATLYN EASLEY made in the right upper quadrant abdominal wall area and tunneled down to the fascia using the Bovie cautery. The fascia was scored in a cruciate fashion. The tunnel for the colostomy was then made and the colon brought up through the tunnel up to the level of the skin. It was sutured in place with interrupted 3-0 Vicryl sutures internally and to the fascia externally. After this was complete, the abdomen was checked. There was no evidence of any other leakage or problems with the bowel. The cecum appeared without ischemia. The abdomen was copiously irrigated again with saline solution and the fascia was debrided sharp with a #10 blade scalpel and hemostasis was achieved with Bovie cautery. After all the fascia was debrided back to viable fascia, a portion of Vicryl mesh was sutured in place with continuous #1 Vicryl sutures. Sterile dressings were applied externally. Estimated blood loss was approximately 150 mL. The patient received 3000 mL of D5 Lactated Ringer's during the procedure. Sponges and instrument counts were correct x3. No complications. The patient was taken to the recovery room with guarded condition. Dictated by... Drew Ramos Jr., M.D. JMB/nanda TD: 12/30/2016 03:47 JOB #: [id number] OPERATIVE REPORT Page 1 of 1 X Drew Ramos MD X PROCEDURE OPERATIVE NOTE
--- NOTE | ~2016-11-20 | HP ---
Unit #: [id number] #: [id number] Patient: KATLYN EASLEY [id number] [facility] [address] [facility] [place] [facility]. [place], [place] [address] [id number] I MR#: [id number] NAME: KATLYN EASLEY ROOM: [facility] Age: 61 Sex: F Admission Date: 11/21/2016 : 1955 Attending Physician: Vu Zhang M.D. Primary Care Physician: No Primary Care Physician HISTORY AND PHYSICAL CHIEF COMPLAINT Shortness of breath. HISTORY OF PRESENT ILLNESS The patient is a 61-year-old female brought to [facility] emergency department secondary to shortness of breath. She is a poor historian and is currently confused. She tells me that it is currently 1979 and that she knows that she is at the hospital but does not know which one. PAST MEDICAL HISTORY She denies any significant past medical history. Based on her medications, it appears that she has A-fib, heart failure, hypertension. She is unable to tell me what past medical history she may have. PAST SURGICAL HISTORY Hysterectomy, cholecystectomy per EMS records. SOCIAL HISTORY Unable to obtain. FAMILY HISTORY Unable to obtain. HOME MEDICATIONS 1. Cartia XT 180 mg p.o. daily. 2. Lovenox 720 mcg daily. 3. Toprol XL 50 mg p.o. b.i.d. 4. Lasix 80 mg p.o. b.i.d. 5. Potassium chloride 10 mEq p.o. b.i.d. ALLERGIES No known drug allergies. REVIEW OF SYSTEMS Unable to obtain. PHYSICAL EXAMINATION VITAL SIGNS: Temperature 98.1, pulse 106, blood pressure 132/89. GENERAL: 61-year-old female in no acute distress, appears stated age. HEENT: Pupils equally round. Extraocular movements intact. Mucous membranes dry. NECK: Supple. No JVD, no lymphadenopathy. CARDIAC: Irregular rate and rhythm. No murmurs, gallops or rubs. Unit #: [id number] #: [id number] Patient: KATLYN EASLEY LUNGS: Clear to auscultation anteriorly with equal air entry bilaterally. ABDOMEN: Nontender, nondistended. She is morbidly obese. EXTREMITIES: Bilateral lower extremity edema. Warm and dry. PSYCH: Alert and oriented x1. Affect is flat. NEUROLOGICAL: Cranial nerves II-XII intact grossly. The patient moves all extremities equally and with purpose. SKIN: She has a wound in her abdomen, an old surgical site that is clean and dry and appears chronic. Otherwise, no rashes, bruises or ulcers. MUSCULOSKELETAL: No muscle or joint pain, no muscle or joint swelling. DIAGNOSTIC STUDIES LABORATORY: White count is 11.1, hemoglobin 16.1, creatinine 1.6. BNP is 633. ASSESSMENT AND PLAN 1. Acute hypoxic respiratory failure: The patient has been started on O2 for oxygen saturations in the 80s. It is likely secondary to heart failure and concern for some obesity/hypoventilation as well. I have ordered an ABG. 2. Heart failure, acute, type unknown: I have ordered a 2D echo, started the patient on IV Lasix. 3. Encephalopathy: The patient is oriented only to person. I am concerned for hypercapnia and have ordered an ABG. 4. Atrial fibrillation: I have continued the patient on her home medications. 5. Prophylaxis: I have started the patient on Lovenox. Dictated by Vu Zhang M.D. NEFTALY/norberto TD: 11/21/2016 05:34 JOB #: [id number] HISTORY AND PHYSICAL X Vu Zhang MD X HISTORY AND PHYSICAL
--- NOTE | ~2016-11-20 | CR7 ---
[facility] A Service of [facility] & [facility] RADIOLOGY TEXT RESULTS PATIENT: KATLYN EASLEY LOCATION: [address] : [birth year] UNIT #: [id number] AGE: [address]: Elizabeth Chamberlain MD SEX: F ORDER DR: [id number] [facility] [address] [facility]. [place], [place] [address] [id number] I MR#: [id number] Acc #: [id number] NAME: KATLYN EASLEY : 1955 SEX: F STUDY DATE/TIME: 11/21/2016 13:15 UNIT: [facility] ROOM: [facility] STUDY DESCRIPTION: CR Abdomen Single AP View Attending Physician: Elizabeth Chamberlain M.D. Ordering Physician: Elizabeth Chamberlain M.D. Primary Care Physician: Primary Care Physician No MEDICAL IMAGING REPORT This report is preliminary unless electronic signature is present INDICATIONS Enteric tube placement. Morbid obesity. Abdominal pain. Single AP view of the abdomen without comparison. Enteric tube is below the diaphragm with the tip in the stomach. Tip projects over the gastric antrum. The bowel gas pattern is nonobstructive. IMPRESSION Enteric tube is in the stomach and below the diaphragm. Dictated by... Jordin Collins M.D. THIS IS AN ELECTRONICALLY VERIFIED REPORT Jordin Collins M.D. at 11/21/2016 4:13 PM NAGA/mattie TD: 11/21/2016 15:11 JOB #: [id number] MEDICAL IMAGING REPORT COPY
--- NOTE | ~2016-11-20 | CR7 ---
[facility] A Service of [facility] & [facility] RADIOLOGY TEXT RESULTS PATIENT: KATLYN EASLEY LOCATION: [address] : [birth year] UNIT #: [id number] AGE: [address]: Elizabeth Chamberlain MD SEX: F ORDER DR: [id number] [place] [id number] [facility]. [place], [place] [address] [id number] I MR#: [id number] Acc #: [id number] NAME: KATLYN EASLEY : 1955 SEX: F STUDY DATE/TIME: 12/01/2016 14:15 UNIT: [facility] ROOM: [facility] STUDY DESCRIPTION: CR Abdomen Single AP View Attending Physician: Elizabeth Chamberlain M.D. Ordering Physician: Elizabeth Chamberlain M.D. Primary Care Physician: No Primary Care Physician MEDICAL IMAGING REPORT This report is preliminary unless electronic signature is present EXAM AP of the abdomen 12/01/2016 INDICATIONS 61-year female with Dobbhoff tube placement. COMPARISON STUDIES Compared with chest x-ray from same day. FINDINGS Tip of the Dobbhoff tube above the diaphragm projecting over the region of the distal esophagus. This needs to be advanced further into the stomach. IMPRESSION Tip of the Dobbhoff tube projecting over the region of the distal esophagus and needs to be advanced further into the stomach. Dictated by... Adis Ruiz M.D. THIS IS AN ELECTRONICALLY VERIFIED REPORT Adis Ruiz M.D. at 12/02/2016 4:19 PM Victorino TD: 12/01/2016 16:57 JOB #: [id number] MEDICAL IMAGING REPORT COPY
--- NOTE | ~2016-11-20 | DS ---
Unit #: [id number] #: [id number] Patient: KATLYN EASLEY [id number] [facility] [address] [facility]. [place], [place] [address] [id number] I MR#: [id number] NAME: KATLYN EASLEY ROOM: [facility] Age: 61 Sex: F Admission Date: 11/21/2016 : 1955 Discharge Date: 12/09/2016 Attending Physician: Shubham Dennison M.D. Primary Care Physician: No Primary Care Physician DISCHARGE SUMMARY HISTORY OF PRESENT ILLNESS/HOSPITAL COURSE The patient is a morbidly obese 61-year-old female who originally was admitted secondary to acute hypercapnic hypoxic respiratory failure, multifactorial in origin, secondary to heart failure, chronic obstructive pulmonary disease, as well as sleep apnea and severe morbid obesity. Through initial part of hospital course she underwent tracheostomy on 12/01/2016 after failed attempts of weaning. In regard to her prior history of atrial fibrillation, cardiology service including [facility] has followed throughout her hospital course. She has been maintained on appropriate rate control. The patient does have a prior history of acute diastolic heart failure. Secondary to chronic hypoxic respiratory failure, pulmonary services did follow up the patient through her hospital course as well, including Dr. Peguero and associates secondary to failure to wean off the ventilator. She did undergo the aforementioned tracheostomy placement. She does have a history of elevated LFTs and/or transaminitis, likely secondary to heart failure. Initially, secondary to diastolic heart failure as well as volume overload she was placed on a Bumex IV drip. Since that time it has been weaned. After she had undergone PEG tube placement on 12/02/2016 unfortunately she developed abdominal distension as well as what appeared to be an acute abdomen. Therefore, [facility] took the patient down for an exploratory laparotomy on 12/06/2016. She is now currently status post colostomy secondary to perforated/colonic perforation. At the present time she is currently receiving TPN for nutritional support. Renal services, including Dr. Warren [facility] followed secondary to acute renal on chronic kidney disease as well as hypernatremia. In regard to her antibiotic management as well as likely sepsis on admission, antibiotics have been maintained by infectious disease services. CURRENT CLINICAL DIAGNOSES 1. Acute on chronic respiratory failure, status post tracheostomy 12/01/2016. Unit #: [id number] #: [id number] Patient: KATLYN EASLEY 2. Status post exploratory laparotomy on 12/06/2016 after PEG tube placement with resultant colostomy. 3. Acute on chronic diastolic heart rate failure. 4. Volume overload. 5. Severe obstructive sleep apnea. 6. Severe morbid obesity. 7. Atrial fibrillation. 8. Poor nutritional status. 9. Hypertension, poorly controlled. 10. Transaminitis, likely secondary to passive heart failure. 11. Hyper natremia. 12. Sepsis on admission. DISCHARGE/TRANSFER MEDICATIONS 1. Combivent aerosol solutions q.4 h. 2. FeverAll 650 mg p.o. q.4 h. p.r.n. 3. Lovenox 420 mg subcutaneous daily. 4. Zofran 4 mg IV q.6 h. p.r.n. 5. Digoxin 0.125 mg IV daily. 6. Lopressor 2.5 mg IV q.6 h. p.r.n. heart rate greater than 120. 7. Lopressor 2.5 mg IV q.6 h. scheduled. 8. NovoLog low-dose sliding scale insulin with Accu-Cheks q.6 h. 9. Protonix 40 mg IV daily. 10. Klor-Con 20 mEq per PEG b.i.d. 11. Fentanyl drip. 12. Merrem 500 mg IV q.6 h. 13. Diflucan 400 mg IV q.24 h. 14. Flagyl 500 mg IV q.8 h. 15. Zyvox 600 mg IV q.12 h. 16. TPN per instructions. DISCHARGE DISPOSITION [place] for ongoing care. Time spent in the coordination of this discharge 55 minutes. Overall, the patient's long-term prognosis secondary to associated comorbid conditions is poor and the patient's family is well aware. Life expectancy despite resuscitative measures is likely less than one year. Dictated by... Solo Pelayo/mary grace TD: 12/09/2016 11:51 JOB #: [id number] DISCHARGE SUMMARY X Shubham Dennison MD X DISCHARGE SUMMARY
--- NOTE | ~2016-11-20 | CR72 ---
[facility] A Service of [facility] & [facility] RADIOLOGY TEXT RESULTS PATIENT: KATLYN EASLEY LOCATION: [place] [address]10 : [birth year] UNIT #: [id number] AGE: [address]: Elizabeth Chamberlain MD SEX: F ORDER DR: [id number] [facility] [address] [facility]. [place], [place] [address] [id number] I MR#: [id number] Acc #: [id number] NAME: KATLYN EASLEY : 1955 SEX: F STUDY DATE/TIME: 11/29/2016 6:33 UNIT: [facility] ROOM: [facility] STUDY DESCRIPTION: CR Chest Single View Portable Attending Physician: Elizabeth Chamberlain M.D. Ordering Physician: Katie Peguero M.D. Primary Care Physician: Primary Care Physician No MEDICAL IMAGING REPORT This report is preliminary unless electronic signature is present EXAM Portable chest HISTORY Respiratory failure. Follow-up endotracheal tube. FINDINGS Today's portable view of the chest is compared with yesterday's study. The endotracheal tube, central venous catheter and Dobbhoff tube remain in good position. There is minimal interstitial prominence. There is marked cardiomegaly. IMPRESSION No change from yesterday's study. There is cardiomegaly with minimal interstitial prominence. The endotracheal tube is in good position. Dictated by... Gregorio Noland M.D. THIS IS AN ELECTRONICALLY VERIFIED REPORT Gregorio Noland M.D. at 11/29/2016 1:11 PM Alyce TD: 11/29/2016 12:27 JOB #: [id number] MEDICAL IMAGING REPORT COPY
--- NOTE | ~2016-11-20 | CR72 ---
[facility] A Service of [facility] & [facility] RADIOLOGY TEXT RESULTS PATIENT: KATLYN EASLEY LOCATION: [place] [address]10 : [birth year] UNIT #: [id number] AGE: [address]: Elizabeth Chamberlain MD SEX: F ORDER DR: [id number] [facility] [address] [facility]. [place], [place] [address] [id number] I MR#: [id number] Acc #: [id number] NAME: KATLYN EASLEY : 1955 SEX: F STUDY DATE/TIME: 11/22/2016 5:59 UNIT: [facility] ROOM: [facility] STUDY DESCRIPTION: CR Chest Single View Portable Attending Physician: Elizabeth Chamberlain M.D. Ordering Physician: Katie Peguero M.D. Primary Care Physician: Primary Care Physician No MEDICAL IMAGING REPORT This report is preliminary unless electronic signature is present EXAM Portable chest INDICATIONS 61-year female with followup respiratory failure. Comparison with yesterday. FINDINGS Stable support lines and tubes. Stable cardiomegaly. Stable bilateral pleural effusions. Stable bilateral perihilar opacities. IMPRESSION No significant change in appearance of the chest. Dictated by... Adis Ruiz M.D. THIS IS AN ELECTRONICALLY VERIFIED REPORT Adis Ruiz M.D. at 11/23/2016 4:05 PM TONY/mattie TD: 11/22/2016 07:16 JOB #: [id number] MEDICAL IMAGING REPORT COPY
[~2016-11-20 18:06] MED LIST: AMOXIL500 M1 PO; CYANOCOBALAMIN INJ; METOPROLOL SUC100 MG PO; MOBIC PO; ST. JOSEPH ASP325 MG; ZESTORETIC 20/11 TAB PO
[2016-11-20 19:13] LABS: POC - CKMB 2.3 ng/mL (0.0-7.9); POC - TROPONIN <0.05 ng/mL (<=0.05)
[2016-11-20 19:18] LABS: INR 1.4; PARTIAL THROMBOPLASTIN TIME 24.8 SECONDS (23.5-31.3); PROTHROMBIN TIME (PATIENT) 14.7 SECONDS (9.6-11.5)
[2016-11-20 19:24] LABS: ALBUMIN SERUM 3.5 g/dL (3.5-5.0); BASOPHIL# 0.2 X10e3 (0-0.3); BASOPHIL% 1.9 % (0-2.5); BILIRUBIN, DIRECT 0.6 mg/dL (0.0-0.2); BILIRUBIN,TOTAL 1.6 mg/dL (0.2-2.0); BUN/CREATININE RATIO 15.62; CALCIUM SERUM 8.8 mg/dL (8.4-10.2); CREATININE SERUM 1.6 mg/dL (0.6-1.4); EOSINOPHIL% 0.1 % (0.0-7.0); HEMOGLOBIN 16.1 gm/dL (12.0-16.0); LYMPHOCYTE# 2.5 X10e3 (1.0-3.5); LYMPHOCYTE% 22.3 % (17.0-45.0); MEAN CELL VOLUME 87.9 FL (83-96); MEAN CORPUSCULAR HEMOGLOBIN 26.3 PG (28-34); MEAN CORPUSCULAR HGB CONC 29.9 g/dL (30-36); MEAN PLATELET VOLUME 9.5 FL (6.5-11.5); MONOCYTE# 1.1 X10e3 (0-1.0); MONOCYTE% 9.9 % (3.0-12.0); NEUTROPHIL# 7.3 X10e3 (1.5-7.1); NEUTROPHIL% 65.8 % (40-75); PLATELET COUNT 217 X10e3 (140-420); PROTEIN TOTAL SERUM 7.4 g/dL (6.0-8.3); RED BLOOD COUNT 6.14 X10e (3.90-5.30); RED CELL DISTRIBUTION WIDTH 19.8 % (11.0-15.5); WHITE BLOOD COUNT 11.1 X10e3 (4.0-10.5)
[2016-11-20 19:25] LABS: DIFF IND NO
[2016-11-20] MEDS ORDERED: CARTIA XT180 MG PO (21:46)
[2016-11-20] MEDS ORDERED: LANOXIN125 MC1 PO (21:46)
[2016-11-20] MEDS ORDERED: LASIX80 MG PO (22:02)
[2016-11-20] MEDS ORDERED: TOPROL XL50 MG PO (22:02)
[2016-11-20] MEDS ORDERED: POTASSIUM CHLO10 ME1 PO (22:03)
[2016-11-20 23:10] LABS: POC - TROPONIN 0.07 ng/mL (<=0.05)
[2016-11-21 01:09] LABS: ARTERIAL BLD GAS O2 SATURATION 84.7 % (90.0-100.0); ARTERIAL BLOOD GAS CARBOXY HB 1.8 %sat (0.0-9.0); ARTERIAL BLOOD GAS HCO3 38.9 mmol/L; ARTERIAL BLOOD GAS MET HB 0.4 %sat (0.0-2.0); ARTERIAL BLOOD GAS pH 7.232 (7.350-7.450)
[2016-11-21 01:12] LABS: ARTERIAL BLOOD GAS ART SITE RIGHT RADIAL; ARTERIAL BLOOD GAS DELIVERY NASAL CANNULA; ARTERIAL BLOOD GAS FIO2 0.32 %; ARTERIAL BLOOD GAS PCO2 92.7 mmHg (35.0-45.0); ARTERIAL BLOOD GAS PO2 65.9 mmHg (80.0-100); ARTERIAL DRAW? YES
[2016-11-21 04:11] LABS: ARTERIAL BLOOD GAS CARBOXY HB 2.1 %sat (0.0-9.0); ARTERIAL BLOOD GAS HCO3 39.6 mmol/L; ARTERIAL BLOOD GAS MET HB 0.8 %sat (0.0-2.0); ARTERIAL BLOOD GAS pH 7.224 (7.350-7.450)
[2016-11-21 04:25] LABS: ARTERIAL BLOOD GAS ALLEN TEST NORMAL; ARTERIAL BLOOD GAS ART SITE RIGHT RADIAL; ARTERIAL BLOOD GAS PO2 63.5 mmHg (80.0-100); ARTERIAL DRAW? YES
[2016-11-21 06:52] LABS: ARTERIAL BLD GAS O2 SATURATION 89.2 % (90.0-100.0); ARTERIAL BLOOD GAS CARBOXY HB 1.8 %sat (0.0-9.0); ARTERIAL BLOOD GAS HCO3 40.5 mmol/L; ARTERIAL BLOOD GAS MET HB 0.5 %sat (0.0-2.0); ARTERIAL BLOOD GAS pH 7.232 (7.350-7.450)
[2016-11-21 06:54] LABS: ARTERIAL BLOOD GAS ALLEN TEST Y; ARTERIAL BLOOD GAS ART SITE LEFT RADIAL; ARTERIAL BLOOD GAS DELIVERY BIPAP; ARTERIAL BLOOD GAS PCO2 96.4 mmHg (35.0-45.0); ARTERIAL BLOOD GAS PO2 74.8 mmHg (80.0-100); ARTERIAL DRAW? YES
[2016-11-21 09:10] LABS: BASOPHIL# 0.1 X10e3 (0-0.3); BASOPHIL% 0.8 % (0-2.5); EOSINOPHIL% 0.2 % (0.0-7.0); HEMATOCRIT 48.3 % (35.0-45.0); HEMOGLOBIN 14.6 gm/dL (12.0-16.0); LYMPHOCYTE# 1.3 X10e3 (1.0-3.5); LYMPHOCYTE% 14.2 % (17.0-45.0); MEAN CELL VOLUME 89.2 FL (83-96); MEAN CORPUSCULAR HEMOGLOBIN 26.9 PG (28-34); MEAN CORPUSCULAR HGB CONC 30.2 g/dL (30-36); MEAN PLATELET VOLUME 9.1 FL (6.5-11.5); MONOCYTE# 0.8 X10e3 (0-1.0); MONOCYTE% 8.8 % (3.0-12.0); NEUTROPHIL# 6.9 X10e3 (1.5-7.1); PLATELET COUNT 177 X10e3 (140-420); RED BLOOD COUNT 5.42 X10e (3.90-5.30); RED CELL DISTRIBUTION WIDTH 19.5 % (11.0-15.5)
[2016-11-21 09:11] LABS: DIFF IND NO
[2016-11-21 09:35] LABS: ARTERIAL BLD GAS O2 SATURATION 98.1 % (90.0-100.0); ARTERIAL BLOOD GAS CARBOXY HB 1.5 %sat (0.0-9.0); ARTERIAL BLOOD GAS HCO3 37.4 mmol/L; ARTERIAL BLOOD GAS MET HB 0.5 %sat (0.0-2.0); ARTERIAL BLOOD GAS pH 7.399 (7.350-7.450)
[2016-11-21 09:36] LABS: ARTERIAL BLOOD GAS ART SITE RIGHT RADIAL; ARTERIAL BLOOD GAS DELIVERY VENT; ARTERIAL BLOOD GAS PCO2 60.5 mmHg (35.0-45.0); ARTERIAL BLOOD GAS VENT MODE A/C; ARTERIAL DRAW? YES
[2016-11-21 09:37] LABS: ALBUMIN SERUM 2.9 g/dL (3.5-5.0); BILIRUBIN,TOTAL 1.5 mg/dL (0.2-2.0); BUN/CREATININE RATIO 16.42; CALCIUM SERUM 8.2 mg/dL (8.4-10.2); CREATININE SERUM 1.4 mg/dL (0.6-1.4); POTASSIUM 3.9 mmol/L (3.5-5.1); PROTEIN TOTAL SERUM 6.4 g/dL (6.0-8.3)
[2016-11-21 10:56] LABS: %MB 6.3 % (0.0-4.0); MB 6.6 ng/ml
[2016-11-22 04:48] LABS: ARTERIAL BLD GAS O2 SATURATION 95.3 % (90.0-100.0); ARTERIAL BLOOD GAS HCO3 39.3 mmol/L; ARTERIAL BLOOD GAS MET HB 0.1 %sat (0.0-2.0); ARTERIAL BLOOD GAS pH 7.504 (7.350-7.450)
[2016-11-22 05:08] LABS: ARTERIAL BLOOD GAS ALLEN TEST NORMAL; ARTERIAL BLOOD GAS ART SITE RIGHT RADIAL; ARTERIAL BLOOD GAS PO2 73.7 mmHg (80.0-100); ARTERIAL BLOOD GAS VENT MODE AC; ARTERIAL DRAW? YES
[2016-11-22 06:03] LABS: CK TOTAL 57 IU/L (26-140)
[2016-11-22 06:20] LABS: ALKALINE PHOSPHATASE 92 U/L (32-92); ALT (SGPT) 82 U/L (10-40); AST (SGOT) 103 U/L (10-42); BILIRUBIN,TOTAL 2.1 mg/dL (0.2-2.0); BLOOD UREA NITROGEN 17 mg/dL (9-23); BUN/CREATININE RATIO 15.45; CALCIUM SERUM 8.5 mg/dL (8.4-10.2); CARBON DIOXIDE 38 mmol/L (22-31); CHLORIDE 92 mmol/L (100-111); CREATININE SERUM 1.1 mg/dL (0.6-1.4); GLOM FILT RATE Estimated ABOVE60 mL/min (>60); GLUCOSE FASTING 80 mg/dL (70-110); MAGNESIUM 1.4 mg/dL (1.6-3.0); PHOSPHOROUS 3.1 mg/dL (2.5-4.6); POTASSIUM 3.3 mmol/L (3.5-5.1); PROTEIN TOTAL SERUM 6.2 g/dL (6.0-8.3); SODIUM 143 mmol/L (135-145)
[2016-11-22 06:31] LABS: BASOPHIL% 0.4 % (0-2.5); EOSINOPHIL# 0.1 X10e3 (0-0.7); LYMPHOCYTE# 1.1 X10e3 (1.0-3.5); LYMPHOCYTE% 10.4 % (17.0-45.0); MEAN CORPUSCULAR HEMOGLOBIN 26.9 PG (28-34); MEAN CORPUSCULAR HGB CONC 31.3 g/dL (30-36); MEAN PLATELET VOLUME 9.5 FL (6.5-11.5); MONOCYTE# 0.7 X10e3 (0-1.0); MONOCYTE% 7.1 % (3.0-12.0); NEUTROPHIL# 8.3 X10e3 (1.5-7.1); NEUTROPHIL% 81.1 % (40-75); PLATELET COUNT 178 X10e3 (140-420); RED BLOOD COUNT 5.85 X10e (3.90-5.30); RED CELL DISTRIBUTION WIDTH 20.1 % (11.0-15.5); WHITE BLOOD COUNT 10.3 X10e3 (4.0-10.5)
[2016-11-22 06:38] LABS: MEAN CELL VOLUME 85.9 FL (83-96)
[2016-11-22 06:39] LABS: HEMATOCRIT 50.2 % (35.0-45.0); HEMOGLOBIN 15.7 gm/dL (12.0-16.0)
[2016-11-22 06:40] LABS: DIFF IND NO
[2016-11-23 04:49] LABS: ARTERIAL BLD GAS O2 SATURATION 94.5 % (90.0-100.0); ARTERIAL BLOOD GAS CARBOXY HB 1.2 %sat (0.0-9.0); ARTERIAL BLOOD GAS HCO3 42.6 mmol/L; ARTERIAL BLOOD GAS MET HB 0.2 %sat (0.0-2.0); ARTERIAL BLOOD GAS PCO2 48.8 mmHg (35.0-45.0); ARTERIAL BLOOD GAS pH 7.548 (7.350-7.450)
[2016-11-23 05:00] LABS: ARTERIAL BLOOD GAS ALLEN TEST NORMAL; ARTERIAL BLOOD GAS ART SITE RIGHT RADIAL; ARTERIAL BLOOD GAS PO2 74.8 mmHg (80.0-100); ARTERIAL BLOOD GAS VENT MODE AC; ARTERIAL DRAW? YES
[2016-11-23 05:33] LABS: BASOPHIL# 0.1 X10e3 (0-0.3); BASOPHIL% 0.5 % (0-2.5); EOSINOPHIL# 0.1 X10e3 (0-0.7); EOSINOPHIL% 1.2 % (0.0-7.0); HEMOGLOBIN 15.1 gm/dL (12.0-16.0); LYMPHOCYTE# 1.5 X10e3 (1.0-3.5); LYMPHOCYTE% 14.8 % (17.0-45.0); MEAN CELL VOLUME 85.4 FL (83-96); MEAN CORPUSCULAR HEMOGLOBIN 26.8 PG (28-34); MEAN CORPUSCULAR HGB CONC 31.4 g/dL (30-36); MEAN PLATELET VOLUME 9.5 FL (6.5-11.5); MONOCYTE# 0.9 X10e3 (0-1.0); MONOCYTE% 9.5 % (3.0-12.0); NEUTROPHIL# 7.3 X10e3 (1.5-7.1); PLATELET COUNT 171 X10e3 (140-420); RED BLOOD COUNT 5.62 X10e (3.90-5.30); RED CELL DISTRIBUTION WIDTH 20.2 % (11.0-15.5); WHITE BLOOD COUNT 9.8 X10e3 (4.0-10.5)
[2016-11-23 05:35] LABS: DIFF IND NO
[2016-11-23 05:51] LABS: ALBUMIN SERUM 2.8 g/dL (3.5-5.0); BILIRUBIN,TOTAL 2.1 mg/dL (0.2-2.0); BUN/CREATININE RATIO 12.5; CALCIUM SERUM 8.5 mg/dL (8.4-10.2); CREATININE SERUM 1.2 mg/dL (0.6-1.4); GLOM FILT RATE Estimated 58.5 mL/min (>60); MAGNESIUM 1.7 mg/dL (1.6-3.0); PHOSPHOROUS 3.7 mg/dL (2.5-4.6); POTASSIUM 3.3 mmol/L (3.5-5.1); PROTEIN TOTAL SERUM 6.1 g/dL (6.0-8.3)
[2016-11-24 04:48] LABS: ARTERIAL BLD GAS O2 SATURATION 91.8 % (90.0-100.0); ARTERIAL BLOOD GAS CARBOXY HB 1.7 %sat (0.0-9.0); ARTERIAL BLOOD GAS HCO3 46.4 mmol/L; ARTERIAL BLOOD GAS MET HB 0.8 %sat (0.0-2.0); ARTERIAL BLOOD GAS pH 7.419 (7.350-7.450)
[2016-11-24 04:49] LABS: ARTERIAL BLOOD GAS PCO2 71.8 mmHg (35.0-45.0); ARTERIAL BLOOD GAS PO2 73.2 mmHg (80.0-100)
[2016-11-24 04:50] LABS: ARTERIAL BLOOD GAS ALLEN TEST NORMAL; ARTERIAL BLOOD GAS ART SITE RIGHT RADIAL; ARTERIAL BLOOD GAS DELIVERY VENT; ARTERIAL BLOOD GAS VENT MODE AC; ARTERIAL DRAW? YES
[2016-11-24 05:33] LABS: ALBUMIN SERUM 2.6 g/dL (3.5-5.0); BILIRUBIN,TOTAL 1.7 mg/dL (0.2-2.0); CALCIUM SERUM 8.6 mg/dL (8.4-10.2); CREATININE SERUM 1.2 mg/dL (0.6-1.4); GLOM FILT RATE Estimated 58.5 mL/min (>60); MAGNESIUM 1.9 mg/dL (1.6-3.0); PHOSPHOROUS 4.6 mg/dL (2.5-4.6); POTASSIUM 3.8 mmol/L (3.5-5.1); PROTEIN TOTAL SERUM 6.2 g/dL (6.0-8.3)
[2016-11-24 07:11] LABS: BASOPHIL# 0.2 X10e3 (0-0.3); EOSINOPHIL# 0.2 X10e3 (0-0.7); EOSINOPHIL% 2.4 % (0.0-7.0); LYMPHOCYTE# 1.3 X10e3 (1.0-3.5); LYMPHOCYTE% 14.4 % (17.0-45.0); MEAN CELL VOLUME 87.9 FL (83-96); MEAN CORPUSCULAR HEMOGLOBIN 26.2 PG (28-34); MEAN CORPUSCULAR HGB CONC 29.7 g/dL (30-36); MEAN PLATELET VOLUME 9.3 FL (6.5-11.5); MONOCYTE# 0.8 X10e3 (0-1.0); NEUTROPHIL# 6.6 X10e3 (1.5-7.1); NEUTROPHIL% 72.2 % (40-75); PLATELET COUNT 160 X10e3 (140-420); RED BLOOD COUNT 5.52 X10e (3.90-5.30); RED CELL DISTRIBUTION WIDTH 20.3 % (11.0-15.5); WHITE BLOOD COUNT 9.1 X10e3 (4.0-10.5)
[2016-11-24 07:29] LABS: HEMATOCRIT 48.5 % (35.0-45.0); HEMOGLOBIN 14.4 gm/dL (12.0-16.0)
[2016-11-24 07:30] LABS: DIFF IND NO
[2016-11-25 04:14] LABS: ARTERIAL BLD GAS O2 SATURATION 93.6 % (90.0-100.0); ARTERIAL BLOOD GAS CARBOXY HB 1.9 %sat (0.0-9.0); ARTERIAL BLOOD GAS HCO3 46.3 mmol/L; ARTERIAL BLOOD GAS MET HB 0.6 %sat (0.0-2.0); ARTERIAL BLOOD GAS PO2 81.4 mmHg (80.0-100); ARTERIAL BLOOD GAS pH 7.432 (7.350-7.450)
[2016-11-25 04:17] LABS: ARTERIAL BLOOD GAS ALLEN TEST NORMAL; ARTERIAL BLOOD GAS ART SITE LEFT RADIAL; ARTERIAL BLOOD GAS DELIVERY VENT; ARTERIAL BLOOD GAS PCO2 69.4 mmHg (35.0-45.0); ARTERIAL BLOOD GAS VENT MODE AC; ARTERIAL DRAW? YES
[2016-11-25 05:06] LABS: BASOPHIL% 0.5 % (0-2.5); EOSINOPHIL# 0.2 X10e3 (0-0.7); EOSINOPHIL% 1.9 % (0.0-7.0); HEMATOCRIT 46.1 % (35.0-45.0); HEMOGLOBIN 14.1 gm/dL (12.0-16.0); LYMPHOCYTE# 1.1 X10e3 (1.0-3.5); LYMPHOCYTE% 10.8 % (17.0-45.0); MEAN CORPUSCULAR HEMOGLOBIN 26.7 PG (28-34); MEAN CORPUSCULAR HGB CONC 30.7 g/dL (30-36); MEAN PLATELET VOLUME 9.3 FL (6.5-11.5); MONOCYTE# 1.2 X10e3 (0-1.0); MONOCYTE% 11.5 % (3.0-12.0); NEUTROPHIL# 7.7 X10e3 (1.5-7.1); NEUTROPHIL% 75.3 % (40-75); PLATELET COUNT 142 X10e3 (140-420); RED CELL DISTRIBUTION WIDTH 20.8 % (11.0-15.5); WHITE BLOOD COUNT 10.2 X10e3 (4.0-10.5)
[2016-11-25 05:07] LABS: DIFF IND NO
[2016-11-25 06:36] LABS: ALBUMIN SERUM 2.6 g/dL (3.5-5.0); ALKALINE PHOSPHATASE 79 U/L (32-92); ALT (SGPT) 45 U/L (10-40); AST (SGOT) 54 U/L (10-42); BILIRUBIN,TOTAL 1.8 mg/dL (0.2-2.0); BLOOD UREA NITROGEN 19 mg/dL (9-23); BUN/CREATININE RATIO 17.27; CARBON DIOXIDE 40 mmol/L (22-31); CHLORIDE 89 mmol/L (100-111); CREATININE SERUM 1.1 mg/dL (0.6-1.4); GLOM FILT RATE Estimated ABOVE60 mL/min (>60); GLUCOSE FASTING 100 mg/dL (70-110); MAGNESIUM 2.1 mg/dL (1.6-3.0); POTASSIUM 4.9 mmol/L (3.5-5.1); PROTEIN TOTAL SERUM 6.2 g/dL (6.0-8.3); SODIUM 141 mmol/L (135-145)
[2016-11-26 04:37] LABS: ARTERIAL BLD GAS O2 SATURATION 95.2 % (90.0-100.0); ARTERIAL BLOOD GAS CARBOXY HB 1.9 %sat (0.0-9.0); ARTERIAL BLOOD GAS HCO3 48.9 mmol/L; ARTERIAL BLOOD GAS MET HB 0.5 %sat (0.0-2.0); ARTERIAL BLOOD GAS PO2 90.1 mmHg (80.0-100); ARTERIAL BLOOD GAS pH 7.505 (7.350-7.450)
[2016-11-26 04:39] LABS: ARTERIAL BLOOD GAS ART SITE RIGHT RADIAL; ARTERIAL BLOOD GAS DELIVERY VENT; ARTERIAL BLOOD GAS PCO2 62.1 mmHg (35.0-45.0); ARTERIAL BLOOD GAS VENT MODE AC; ARTERIAL DRAW? YES
[2016-11-26 06:46] LABS: BASOPHIL% 0.3 % (0-2.5); EOSINOPHIL# 0.1 X10e3 (0-0.7); EOSINOPHIL% 1.7 % (0.0-7.0); HEMATOCRIT 52.1 % (35.0-45.0); HEMOGLOBIN 15.9 gm/dL (12.0-16.0); LYMPHOCYTE# 0.7 X10e3 (1.0-3.5); LYMPHOCYTE% 9.5 % (17.0-45.0); MEAN CELL VOLUME 86.8 FL (83-96); MEAN CORPUSCULAR HEMOGLOBIN 26.5 PG (28-34); MEAN CORPUSCULAR HGB CONC 30.5 g/dL (30-36); MEAN PLATELET VOLUME 9.9 FL (6.5-11.5); MONOCYTE# 0.7 X10e3 (0-1.0); MONOCYTE% 9.4 % (3.0-12.0); NEUTROPHIL# 5.9 X10e3 (1.5-7.1); NEUTROPHIL% 79.1 % (40-75); PLATELET COUNT 129 X10e3 (140-420); RED BLOOD COUNT 5.99 X10e (3.90-5.30); WHITE BLOOD COUNT 7.4 X10e3 (4.0-10.5)
[2016-11-26 06:48] LABS: DIFF IND NO
[2016-11-26 07:20] LABS: ALBUMIN SERUM 2.9 g/dL (3.5-5.0); BILIRUBIN,TOTAL 1.2 mg/dL (0.2-2.0); BUN/CREATININE RATIO 21.53; CALCIUM SERUM 9.4 mg/dL (8.4-10.2); CREATININE SERUM 1.3 mg/dL (0.6-1.4); GLOM FILT RATE Estimated 53.4 mL/min (>60); MAGNESIUM 2.1 mg/dL (1.6-3.0); PHOSPHOROUS 4.1 mg/dL (2.5-4.6); PROTEIN TOTAL SERUM 7.2 g/dL (6.0-8.3)
[2016-11-26 07:28] LABS: POTASSIUM 2.8 mmol/L (3.5-5.1)
[2016-11-27 04:05] LABS: ARTERIAL BLD GAS O2 SATURATION 90.3 % (90.0-100.0); ARTERIAL BLOOD GAS CARBOXY HB 1.8 %sat (0.0-9.0); ARTERIAL BLOOD GAS HCO3 50.3 mmol/L; ARTERIAL BLOOD GAS MET HB 0.5 %sat (0.0-2.0); ARTERIAL BLOOD GAS pH 7.405 (7.350-7.450)
[2016-11-27 04:09] LABS: ARTERIAL BLOOD GAS ALLEN TEST NORMAL; ARTERIAL BLOOD GAS ART SITE LEFT RADIAL; ARTERIAL BLOOD GAS PCO2 80.4 mmHg (35.0-45.0); ARTERIAL BLOOD GAS PO2 70.8 mmHg (80.0-100); ARTERIAL DRAW? YES
[2016-11-27 04:10] LABS: ARTERIAL BLOOD GAS DELIVERY VENT; ARTERIAL BLOOD GAS VENT MODE AC
[2016-11-27 05:30] LABS: BASOPHIL# 0.1 X10e3 (0-0.3); BASOPHIL% 0.5 % (0-2.5); EOSINOPHIL# 0.1 X10e3 (0-0.7); EOSINOPHIL% 1.5 % (0.0-7.0); HEMATOCRIT 44.2 % (35.0-45.0); LYMPHOCYTE% 10.6 % (17.0-45.0); MEAN CELL VOLUME 87.4 FL (83-96); MEAN CORPUSCULAR HEMOGLOBIN 26.8 PG (28-34); MEAN CORPUSCULAR HGB CONC 30.7 g/dL (30-36); MEAN PLATELET VOLUME 9.9 FL (6.5-11.5); MONOCYTE# 1.2 X10e3 (0-1.0); NEUTROPHIL# 7.3 X10e3 (1.5-7.1); NEUTROPHIL% 75.4 % (40-75); PLATELET COUNT 166 X10e3 (140-420); RED BLOOD COUNT 5.06 X10e (3.90-5.30); RED CELL DISTRIBUTION WIDTH 21.4 % (11.0-15.5); WHITE BLOOD COUNT 9.7 X10e3 (4.0-10.5)
[2016-11-27 05:32] LABS: DIFF IND NO; HEMOGLOBIN 13.6 gm/dL (12.0-16.0)
[2016-11-27 06:57] LABS: ALBUMIN SERUM 2.7 g/dL (3.5-5.0); BILIRUBIN,TOTAL 1.2 mg/dL (0.2-2.0); BUN/CREATININE RATIO 29.23; CALCIUM SERUM 9.4 mg/dL (8.4-10.2); CREATININE SERUM 1.3 mg/dL (0.6-1.4); GLOM FILT RATE Estimated 53.4 mL/min (>60); MAGNESIUM 2.3 mg/dL (1.6-3.0); POTASSIUM 3.8 mmol/L (3.5-5.1); PROTEIN TOTAL SERUM 6.8 g/dL (6.0-8.3)
[2016-11-27 23:30] LABS: BUN/CREATININE RATIO 31.53; CALCIUM SERUM 9.5 mg/dL (8.4-10.2); CREATININE SERUM 1.3 mg/dL (0.6-1.4); GLOM FILT RATE Estimated 53.4 mL/min (>60); MAGNESIUM 2.3 mg/dL (1.6-3.0); POTASSIUM 3.7 mmol/L (3.5-5.1)
[2016-11-28 03:40] LABS: ARTERIAL BLD GAS O2 SATURATION 94.1 % (90.0-100.0); ARTERIAL BLOOD GAS CARBOXY HB 1.8 %sat (0.0-9.0); ARTERIAL BLOOD GAS HCO3 51.8 mmol/L; ARTERIAL BLOOD GAS MET HB 0.7 %sat (0.0-2.0); ARTERIAL BLOOD GAS PO2 84.4 mmHg (80.0-100); ARTERIAL BLOOD GAS pH 7.445 (7.350-7.450)
[2016-11-28 04:32] LABS: ARTERIAL BLOOD GAS ALLEN TEST NORMAL; ARTERIAL BLOOD GAS ART SITE LEFT RADIAL; ARTERIAL BLOOD GAS DELIVERY VENT; ARTERIAL BLOOD GAS PCO2 75.4 mmHg (35.0-45.0); ARTERIAL BLOOD GAS VENT MODE AC; ARTERIAL DRAW? YES
[2016-11-28 05:40] LABS: ALBUMIN SERUM 2.9 g/dL (3.5-5.0); BUN/CREATININE RATIO 28.57; CALCIUM SERUM 9.5 mg/dL (8.4-10.2); CREATININE SERUM 1.4 mg/dL (0.6-1.4); MAGNESIUM 2.4 mg/dL (1.6-3.0); POTASSIUM 3.4 mmol/L (3.5-5.1); PROTEIN TOTAL SERUM 7.4 g/dL (6.0-8.3)
[2016-11-28 05:47] LABS: BASOPHIL% 0.4 % (0-2.5); EOSINOPHIL# 0.2 X10e3 (0-0.7); EOSINOPHIL% 1.9 % (0.0-7.0); HEMATOCRIT 43.3 % (35.0-45.0); HEMOGLOBIN 13.1 gm/dL (12.0-16.0); LYMPHOCYTE# 1.7 X10e3 (1.0-3.5); LYMPHOCYTE% 17.2 % (17.0-45.0); MEAN CORPUSCULAR HEMOGLOBIN 26.3 PG (28-34); MEAN CORPUSCULAR HGB CONC 30.2 g/dL (30-36); MEAN PLATELET VOLUME 9.9 FL (6.5-11.5); MONOCYTE# 1.3 X10e3 (0-1.0); MONOCYTE% 13.2 % (3.0-12.0); NEUTROPHIL# 6.6 X10e3 (1.5-7.1); NEUTROPHIL% 67.3 % (40-75); PLATELET COUNT 176 X10e3 (140-420); RED BLOOD COUNT 4.98 X10e (3.90-5.30); WHITE BLOOD COUNT 9.8 X10e3 (4.0-10.5)
[2016-11-28 05:53] LABS: DIFF IND NO
[2016-11-29 03:39] LABS: ARTERIAL BLD GAS O2 SATURATION 94.1 % (90.0-100.0); ARTERIAL BLOOD GAS CARBOXY HB 1.5 %sat (0.0-9.0); ARTERIAL BLOOD GAS HCO3 49.9 mmol/L; ARTERIAL BLOOD GAS MET HB 0.8 %sat (0.0-2.0); ARTERIAL BLOOD GAS pH 7.429 (7.350-7.450)
[2016-11-29 03:45] LABS: ARTERIAL BLOOD GAS ALLEN TEST NORMAL; ARTERIAL BLOOD GAS ART SITE LEFT RADIAL; ARTERIAL BLOOD GAS DELIVERY VENT; ARTERIAL BLOOD GAS PCO2 75.4 mmHg (35.0-45.0); ARTERIAL BLOOD GAS VENT MODE AC; ARTERIAL DRAW? YES
[2016-11-29 05:53] LABS: BASOPHIL# 0.1 X10e3 (0-0.3); BASOPHIL% 0.6 % (0-2.5); EOSINOPHIL# 0.2 X10e3 (0-0.7); EOSINOPHIL% 2.5 % (0.0-7.0); HEMATOCRIT 43.2 % (35.0-45.0); LYMPHOCYTE# 1.2 X10e3 (1.0-3.5); LYMPHOCYTE% 12.9 % (17.0-45.0); MEAN CELL VOLUME 88.4 FL (83-96); MEAN CORPUSCULAR HEMOGLOBIN 26.7 PG (28-34); MEAN CORPUSCULAR HGB CONC 30.1 g/dL (30-36); MEAN PLATELET VOLUME 10.2 FL (6.5-11.5); MONOCYTE# 1.3 X10e3 (0-1.0); MONOCYTE% 13.6 % (3.0-12.0); NEUTROPHIL# 6.6 X10e3 (1.5-7.1); NEUTROPHIL% 70.4 % (40-75); PLATELET COUNT 166 X10e3 (140-420); RED BLOOD COUNT 4.88 X10e (3.90-5.30); RED CELL DISTRIBUTION WIDTH 21.7 % (11.0-15.5); WHITE BLOOD COUNT 9.4 X10e3 (4.0-10.5)
[2016-11-29 05:56] LABS: DIFF IND NO
[2016-11-29 06:23] LABS: BUN/CREATININE RATIO 35.38; CALCIUM SERUM 9.7 mg/dL (8.4-10.2); CREATININE SERUM 1.3 mg/dL (0.6-1.4); GLOM FILT RATE Estimated 53.4 mL/min (>60); MAGNESIUM 2.6 mg/dL (1.6-3.0); POTASSIUM 3.8 mmol/L (3.5-5.1)
[2016-11-29 11:19] LABS: HEMATOCRIT 44.8 % (35.0-45.0); HEMOGLOBIN 13.2 gm/dL (12.0-16.0); MEAN CORPUSCULAR HEMOGLOBIN 26.2 PG (28-34); MEAN CORPUSCULAR HGB CONC 29.4 g/dL (30-36); MEAN PLATELET VOLUME 10.3 FL (6.5-11.5); RED BLOOD COUNT 5.03 X10e (3.90-5.30); RED CELL DISTRIBUTION WIDTH 21.7 % (11.0-15.5); WHITE BLOOD COUNT 9.7 X10e3 (4.0-10.5)
[2016-11-29 11:42] LABS: PARTIAL THROMBOPLASTIN TIME 26.1 SECONDS (23.5-31.3)
[2016-11-30 03:39] LABS: ARTERIAL BLD GAS O2 SATURATION 93.7 % (90.0-100.0); ARTERIAL BLOOD GAS CARBOXY HB 1.5 %sat (0.0-9.0); ARTERIAL BLOOD GAS HCO3 50.9 mmol/L; ARTERIAL BLOOD GAS MET HB 0.8 %sat (0.0-2.0); ARTERIAL BLOOD GAS PO2 82.8 mmHg (80.0-100); ARTERIAL BLOOD GAS pH 7.421 (7.350-7.450)
[2016-11-30 03:43] LABS: ARTERIAL BLOOD GAS ALLEN TEST NORMAL; ARTERIAL BLOOD GAS ART SITE LEFT RADIAL; ARTERIAL BLOOD GAS DELIVERY VENT; ARTERIAL BLOOD GAS PCO2 78.4 mmHg (35.0-45.0); ARTERIAL BLOOD GAS VENT MODE AC; ARTERIAL DRAW? YES
[2016-11-30 06:03] LABS: BASOPHIL# 0.1 X10e3 (0-0.3); BASOPHIL% 0.9 % (0-2.5); EOSINOPHIL# 0.2 X10e3 (0-0.7); EOSINOPHIL% 2.9 % (0.0-7.0); HEMATOCRIT 43.4 % (35.0-45.0); HEMOGLOBIN 12.8 gm/dL (12.0-16.0); LYMPHOCYTE# 1.1 X10e3 (1.0-3.5); LYMPHOCYTE% 13.4 % (17.0-45.0); MEAN CELL VOLUME 88.7 FL (83-96); MEAN CORPUSCULAR HEMOGLOBIN 26.2 PG (28-34); MEAN CORPUSCULAR HGB CONC 29.5 g/dL (30-36); MEAN PLATELET VOLUME 9.7 FL (6.5-11.5); MONOCYTE% 11.6 % (3.0-12.0); NEUTROPHIL# 5.9 X10e3 (1.5-7.1); NEUTROPHIL% 71.2 % (40-75); PLATELET COUNT 179 X10e3 (140-420); RED BLOOD COUNT 4.89 X10e (3.90-5.30); RED CELL DISTRIBUTION WIDTH 21.2 % (11.0-15.5); WHITE BLOOD COUNT 8.3 X10e3 (4.0-10.5)
[2016-11-30 06:04] LABS: DIFF IND NO
[2016-11-30 07:20] LABS: BUN/CREATININE RATIO 33.84; CALCIUM SERUM 9.5 mg/dL (8.4-10.2); CREATININE SERUM 1.3 mg/dL (0.6-1.4); GLOM FILT RATE Estimated 53.4 mL/min (>60); MAGNESIUM 2.8 mg/dL (1.6-3.0); POTASSIUM 4.1 mmol/L (3.5-5.1)
[2016-11-30 12:20] LABS: URINE APPEARANCE CLEAR; URINE BILIRUBIN NEG (NEG); URINE BLOOD 2+ (NEG); URINE COLOR YELLOW; URINE GLUCOSE NEG (NEG); URINE KETONE NEG (NEG); URINE LEUKOCYTE ESTERASE NEG (NEG); URINE NITRATE NEG (NEG); URINE PROTEIN NEG (NEG); URINE SPECIFIC GRAVITY 1.015 (1.003-1.035); URINE UROBILINOGEN 0.2 MG/DL (NEG)
[2016-11-30 12:22] LABS: URINE BACTERIA AUWI NEG (NEGATIVE); URINE SQUAMOUS EPITHELIAL CELL NONE SEEN /[HPF]; UWBCS1 AUWI 0-2 (0-5)
[2016-11-30 12:25] LABS: CULTURE INDICATED? NO
[2016-12-01 04:11] LABS: BASOPHIL# 0.1 X10e3 (0-0.3); EOSINOPHIL# 0.3 X10e3 (0-0.7); HEMATOCRIT 44.8 % (35.0-45.0); HEMOGLOBIN 13.7 gm/dL (12.0-16.0); LYMPHOCYTE# 1.2 X10e3 (1.0-3.5); LYMPHOCYTE% 13.5 % (17.0-45.0); MEAN CELL VOLUME 88.9 FL (83-96); MEAN CORPUSCULAR HEMOGLOBIN 27.1 PG (28-34); MEAN CORPUSCULAR HGB CONC 30.4 g/dL (30-36); MEAN PLATELET VOLUME 10.4 FL (6.5-11.5); MONOCYTE% 11.3 % (3.0-12.0); NEUTROPHIL# 6.4 X10e3 (1.5-7.1); NEUTROPHIL% 71.2 % (40-75); PLATELET COUNT 182 X10e3 (140-420); RED BLOOD COUNT 5.05 X10e (3.90-5.30); RED CELL DISTRIBUTION WIDTH 21.5 % (11.0-15.5)
[2016-12-01 04:12] LABS: DIFF IND NO
[2016-12-01 04:21] LABS: INR 1.1; PARTIAL THROMBOPLASTIN TIME 47.6 SECONDS (23.5-31.3); PROTHROMBIN TIME (PATIENT) 11.4 SECONDS (9.6-11.5)
[2016-12-01 04:54] LABS: ARTERIAL BLD GAS O2 SATURATION 94.7 % (90.0-100.0); ARTERIAL BLOOD GAS CARBOXY HB 1.7 %sat (0.0-9.0); ARTERIAL BLOOD GAS HCO3 49.6 mmol/L; ARTERIAL BLOOD GAS MET HB 0.7 %sat (0.0-2.0); ARTERIAL BLOOD GAS PO2 90.5 mmHg (80.0-100); ARTERIAL BLOOD GAS pH 7.446 (7.350-7.450)
[2016-12-01 05:07] LABS: ARTERIAL BLOOD GAS ALLEN TEST NORMAL; ARTERIAL BLOOD GAS ART SITE LEFT RADIAL; ARTERIAL DRAW? YES
[2016-12-01 05:08] LABS: ARTERIAL BLOOD GAS DELIVERY VENT; ARTERIAL BLOOD GAS VENT MODE AC
[2016-12-01 06:32] LABS: ALBUMIN SERUM 2.8 g/dL (3.5-5.0); BILIRUBIN,TOTAL 1.1 mg/dL (0.2-2.0); BUN/CREATININE RATIO 36.42; CALCIUM SERUM 9.5 mg/dL (8.4-10.2); CREATININE SERUM 1.4 mg/dL (0.6-1.4); MAGNESIUM 2.9 mg/dL (1.6-3.0); POTASSIUM 4.6 mmol/L (3.5-5.1); PROTEIN TOTAL SERUM 7.2 g/dL (6.0-8.3)
[2016-12-01 14:42] LABS: ARTERIAL BLD GAS O2 SATURATION 92.4 % (90.0-100.0); ARTERIAL BLOOD GAS CARBOXY HB 1.4 %sat (0.0-9.0); ARTERIAL BLOOD GAS HCO3 47.8 mmol/L; ARTERIAL BLOOD GAS MET HB 0.5 %sat (0.0-2.0); ARTERIAL BLOOD GAS pH 7.401 (7.350-7.450)
[2016-12-01 14:44] LABS: ARTERIAL BLOOD GAS ALLEN TEST Y; ARTERIAL BLOOD GAS ART SITE LEFT RADIAL; ARTERIAL BLOOD GAS DELIVERY VE; ARTERIAL BLOOD GAS PO2 74.6 mmHg (80.0-100); ARTERIAL DRAW? YES
[2016-12-01 14:45] LABS: ARTERIAL BLOOD GAS VENT MODE AC
[2016-12-02 04:48] LABS: ARTERIAL BLD GAS O2 SATURATION 94.1 % (90.0-100.0); ARTERIAL BLOOD GAS CARBOXY HB 1.5 %sat (0.0-9.0); ARTERIAL BLOOD GAS HCO3 47.8 mmol/L; ARTERIAL BLOOD GAS MET HB 0.4 %sat (0.0-2.0); ARTERIAL BLOOD GAS pH 7.473 (7.350-7.450)
[2016-12-02 04:54] LABS: ARTERIAL BLOOD GAS ALLEN TEST NORMAL; ARTERIAL BLOOD GAS ART SITE RIGHT RADIAL; ARTERIAL BLOOD GAS PCO2 65.4 mmHg (35.0-45.0); ARTERIAL BLOOD GAS PO2 79.6 mmHg (80.0-100); ARTERIAL DRAW? YES
[2016-12-02 04:55] LABS: ARTERIAL BLOOD GAS VENT MODE AC
[2016-12-02 05:39] LABS: BASOPHIL# 0.1 X10e3 (0-0.3); BASOPHIL% 0.6 % (0-2.5); EOSINOPHIL# 0.3 X10e3 (0-0.7); EOSINOPHIL% 2.7 % (0.0-7.0); HEMATOCRIT 44.7 % (35.0-45.0); HEMOGLOBIN 13.5 gm/dL (12.0-16.0); LYMPHOCYTE# 1.3 X10e3 (1.0-3.5); LYMPHOCYTE% 13.7 % (17.0-45.0); MEAN CELL VOLUME 88.5 FL (83-96); MEAN CORPUSCULAR HEMOGLOBIN 26.8 PG (28-34); MEAN CORPUSCULAR HGB CONC 30.2 g/dL (30-36); MEAN PLATELET VOLUME 10.7 FL (6.5-11.5); MONOCYTE# 0.9 X10e3 (0-1.0); MONOCYTE% 9.2 % (3.0-12.0); NEUTROPHIL% 73.8 % (40-75); PLATELET COUNT 197 X10e3 (140-420); RED BLOOD COUNT 5.05 X10e (3.90-5.30); RED CELL DISTRIBUTION WIDTH 21.6 % (11.0-15.5); WHITE BLOOD COUNT 9.5 X10e3 (4.0-10.5)
[2016-12-02 05:41] LABS: DIFF IND NO
[2016-12-02 07:33] LABS: CALCIUM SERUM 9.8 mg/dL (8.4-10.2); CREATININE SERUM 1.4 mg/dL (0.6-1.4); MAGNESIUM 2.9 mg/dL (1.6-3.0); POTASSIUM 4.4 mmol/L (3.5-5.1)
[2016-12-03 00:16] LABS: HEMATOCRIT 46.6 % (35.0-45.0); HEMOGLOBIN 13.7 gm/dL (12.0-16.0); MEAN CELL VOLUME 90.8 FL (83-96); MEAN CORPUSCULAR HEMOGLOBIN 26.8 PG (28-34); MEAN CORPUSCULAR HGB CONC 29.5 g/dL (30-36); MEAN PLATELET VOLUME 10.9 FL (6.5-11.5); RED BLOOD COUNT 5.13 X10e (3.90-5.30); RED CELL DISTRIBUTION WIDTH 22.3 % (11.0-15.5); WHITE BLOOD COUNT 12.1 X10e3 (4.0-10.5)
[2016-12-03 00:19] LABS: INR 1.1; PROTHROMBIN TIME (PATIENT) 11.6 SECONDS (9.6-11.5)
[2016-12-03 00:30] LABS: PARTIAL THROMBOPLASTIN TIME 23.8 SECONDS (23.5-31.3)
[2016-12-03 04:41] LABS: ARTERIAL BLD GAS O2 SATURATION 94.9 % (90.0-100.0); ARTERIAL BLOOD GAS CARBOXY HB 1.7 %sat (0.0-9.0); ARTERIAL BLOOD GAS MET HB 0.4 %sat (0.0-2.0); ARTERIAL BLOOD GAS PO2 90.8 mmHg (80.0-100); ARTERIAL BLOOD GAS pH 7.429 (7.350-7.450)
[2016-12-03 04:55] LABS: ARTERIAL BLOOD GAS ALLEN TEST NORMAL; ARTERIAL BLOOD GAS ART SITE RIGHT RADIAL; ARTERIAL BLOOD GAS PCO2 66.5 mmHg (35.0-45.0); ARTERIAL BLOOD GAS VENT MODE AC; ARTERIAL DRAW? YES
[2016-12-03 05:30] LABS: BASOPHIL# 0.1 X10e3 (0-0.3); BASOPHIL% 0.9 % (0-2.5); DIFF IND YES; EOSINOPHIL# 0.2 X10e3 (0-0.7); EOSINOPHIL% 1.5 % (0.0-7.0); HEMOGLOBIN 13.4 gm/dL (12.0-16.0); LYMPHOCYTE# 1.4 X10e3 (1.0-3.5); LYMPHOCYTE% 12.3 % (17.0-45.0); MEAN CELL VOLUME 89.5 FL (83-96); MEAN CORPUSCULAR HEMOGLOBIN 26.7 PG (28-34); MEAN CORPUSCULAR HGB CONC 29.8 g/dL (30-36); MEAN PLATELET VOLUME 11.5 FL (6.5-11.5); MONOCYTE% 9.1 % (3.0-12.0); NEUTROPHIL# 8.8 X10e3 (1.5-7.1); NEUTROPHIL% 76.2 % (40-75); PLATELET COUNT 199 X10e3 (140-420); RED BLOOD COUNT 5.03 X10e (3.90-5.30); RED CELL DISTRIBUTION WIDTH 22.1 % (11.0-15.5); WHITE BLOOD COUNT 11.5 X10e3 (4.0-10.5)
[2016-12-03 05:56] LABS: PLATELET ESTIMATE NORMAL (NORMAL); POIKILOCYTOSIS MOD
[2016-12-03 06:11] LABS: ALBUMIN SERUM 2.7 g/dL (3.5-5.0); BILIRUBIN,TOTAL 1.1 mg/dL (0.2-2.0); CREATININE SERUM 1.6 mg/dL (0.6-1.4); MAGNESIUM 2.9 mg/dL (1.6-3.0); POTASSIUM 4.3 mmol/L (3.5-5.1); PROTEIN TOTAL SERUM 7.1 g/dL (6.0-8.3)
[2016-12-04 05:59] LABS: BASOPHIL# 0.1 X10e3 (0-0.3); BASOPHIL% 0.6 % (0-2.5); EOSINOPHIL# 0.1 X10e3 (0-0.7); EOSINOPHIL% 0.4 % (0.0-7.0); HEMATOCRIT 42.8 % (35.0-45.0); HEMOGLOBIN 12.7 gm/dL (12.0-16.0); LYMPHOCYTE# 0.7 X10e3 (1.0-3.5); LYMPHOCYTE% 4.9 % (17.0-45.0); MEAN CELL VOLUME 88.9 FL (83-96); MEAN CORPUSCULAR HEMOGLOBIN 26.4 PG (28-34); MEAN CORPUSCULAR HGB CONC 29.7 g/dL (30-36); MEAN PLATELET VOLUME 11.1 FL (6.5-11.5); MONOCYTE# 0.9 X10e3 (0-1.0); MONOCYTE% 6.3 % (3.0-12.0); NEUTROPHIL# 12.9 X10e3 (1.5-7.1); NEUTROPHIL% 87.8 % (40-75); PLATELET COUNT 181 X10e3 (140-420); RED BLOOD COUNT 4.81 X10e (3.90-5.30); RED CELL DISTRIBUTION WIDTH 22.2 % (11.0-15.5); WHITE BLOOD COUNT 14.7 X10e3 (4.0-10.5)
[2016-12-04 06:03] LABS: DIFF IND NO
[2016-12-04 06:51] LABS: BUN/CREATININE RATIO 38.46; CALCIUM SERUM 9.1 mg/dL (8.4-10.2); CREATININE SERUM 1.3 mg/dL (0.6-1.4); GLOM FILT RATE Estimated 53.4 mL/min (>60); MAGNESIUM 3.1 mg/dL (1.6-3.0); POTASSIUM 3.6 mmol/L (3.5-5.1)
[2016-12-04 17:50] LABS: URINE APPEARANCE SL HAZY; URINE COLOR AMBER
[2016-12-04 17:51] LABS: URINE BILIRUBIN NEG (NEG); URINE BLOOD 2+ (NEG); URINE GLUCOSE NORM (NEG); URINE ICTOTEST NEG (NEG); URINE KETONE NEG (NEG); URINE LEUKOCYTE ESTERASE NEG (NEG); URINE NITRATE NEG (NEG); URINE PROTEIN 1+ (NEG); URINE UROBILINOGEN NORM (NEG)
[2016-12-04 17:54] LABS: U HYALINE CASTS AUWI 0-2 /[LPF]; URINE SQUAMOUS EPITHELIAL CELL OCCAS /[HPF]
[2016-12-04 17:55] LABS: URINE BACTERIA AUWI 1+ (NEGATIVE)
[2016-12-05 02:43] LABS: BASOPHIL# 0.1 X10e3 (0-0.3); BASOPHIL% 0.5 % (0-2.5); EOSINOPHIL# 0.2 X10e3 (0-0.7); EOSINOPHIL% 1.2 % (0.0-7.0); HEMATOCRIT 41.6 % (35.0-45.0); HEMOGLOBIN 12.3 gm/dL (12.0-16.0); LYMPHOCYTE# 1.3 X10e3 (1.0-3.5); LYMPHOCYTE% 8.9 % (17.0-45.0); MEAN CELL VOLUME 88.5 FL (83-96); MEAN CORPUSCULAR HEMOGLOBIN 26.2 PG (28-34); MEAN CORPUSCULAR HGB CONC 29.7 g/dL (30-36); MEAN PLATELET VOLUME 11.1 FL (6.5-11.5); MONOCYTE# 0.9 X10e3 (0-1.0); MONOCYTE% 6.6 % (3.0-12.0); NEUTROPHIL# 11.8 X10e3 (1.5-7.1); NEUTROPHIL% 82.8 % (40-75); PLATELET COUNT 171 X10e3 (140-420); RED CELL DISTRIBUTION WIDTH 22.4 % (11.0-15.5); WHITE BLOOD COUNT 14.3 X10e3 (4.0-10.5)
[2016-12-05 02:45] LABS: DIFF IND NO
[2016-12-05 03:04] LABS: BUN/CREATININE RATIO 36.92; CALCIUM SERUM 9.2 mg/dL (8.4-10.2); CREATININE SERUM 1.3 mg/dL (0.6-1.4); GLOM FILT RATE Estimated 53.4 mL/min (>60); MAGNESIUM 3.1 mg/dL (1.6-3.0)
[2016-12-05 03:06] LABS: POTASSIUM 2.9 mmol/L (3.5-5.1)
[2016-12-05 04:02] LABS: ARTERIAL BLD GAS O2 SATURATION 90.9 % (90.0-100.0); ARTERIAL BLOOD GAS HCO3 43.1 mmol/L; ARTERIAL BLOOD GAS MET HB 0.3 %sat (0.0-2.0); ARTERIAL BLOOD GAS pH 7.507 (7.350-7.450)
[2016-12-05 04:11] LABS: ARTERIAL BLOOD GAS ALLEN TEST NORMAL; ARTERIAL BLOOD GAS ART SITE RIGHT RADIAL; ARTERIAL BLOOD GAS PCO2 54.5 mmHg (35.0-45.0); ARTERIAL BLOOD GAS PO2 62.7 mmHg (80.0-100); ARTERIAL DRAW? YES
[2016-12-05 04:12] LABS: ARTERIAL BLOOD GAS DELIVERY VENT; ARTERIAL BLOOD GAS VENT MODE A/C
[2016-12-05 11:31] LABS: BODY FLUID SOURCE BRONCHIAL LAVAGE
[2016-12-05 11:32] LABS: BODY FLUID APPEARANCE CLOUDY
[2016-12-05 16:33] LABS: CALCIUM SERUM 9.2 mg/dL (8.4-10.2); CREATININE SERUM 1.2 mg/dL (0.6-1.4); GLOM FILT RATE Estimated 58.5 mL/min (>60); MAGNESIUM 2.9 mg/dL (1.6-3.0); POTASSIUM 3.6 mmol/L (3.5-5.1)
[2016-12-06 04:58] LABS: ARTERIAL BLD GAS O2 SATURATION 94.8 % (90.0-100.0); ARTERIAL BLOOD GAS CARBOXY HB 1.4 %sat (0.0-9.0); ARTERIAL BLOOD GAS HCO3 40.2 mmol/L; ARTERIAL BLOOD GAS MET HB 0.6 %sat (0.0-2.0); ARTERIAL BLOOD GAS PO2 90.1 mmHg (80.0-100)
[2016-12-06 05:02] LABS: ARTERIAL BLOOD GAS ALLEN TEST NORMAL; ARTERIAL BLOOD GAS ART SITE LEFT RADIAL; ARTERIAL DRAW? YES
[2016-12-06 05:03] LABS: ARTERIAL BLOOD GAS DELIVERY VENT; ARTERIAL BLOOD GAS VENT MODE AC
[2016-12-06 06:36] LABS: BLOOD UREA NITROGEN 44 mg/dL (9-23); CALCIUM SERUM 9.5 mg/dL (8.4-10.2); CARBON DIOXIDE 39 mmol/L (22-31); CHLORIDE 102 mmol/L (100-111); CREATININE SERUM 1.1 mg/dL (0.6-1.4); GLOM FILT RATE Estimated ABOVE60 mL/min (>60); GLUCOSE FASTING 79 mg/dL (70-110); MAGNESIUM 2.6 mg/dL (1.6-3.0); POTASSIUM 3.9 mmol/L (3.5-5.1); SODIUM 153 mmol/L (135-145)
[2016-12-06 07:26] LABS: BASOPHIL% 0.3 % (0-2.5); EOSINOPHIL# 0.4 X10e3 (0-0.7); EOSINOPHIL% 3.7 % (0.0-7.0); HEMATOCRIT 40.3 % (35.0-45.0); HEMOGLOBIN 11.9 gm/dL (12.0-16.0); LYMPHOCYTE# 1.1 X10e3 (1.0-3.5); LYMPHOCYTE% 10.5 % (17.0-45.0); MEAN CELL VOLUME 89.3 FL (83-96); MEAN CORPUSCULAR HEMOGLOBIN 26.4 PG (28-34); MEAN CORPUSCULAR HGB CONC 29.5 g/dL (30-36); MEAN PLATELET VOLUME 11.6 FL (6.5-11.5); MONOCYTE# 0.8 X10e3 (0-1.0); MONOCYTE% 7.8 % (3.0-12.0); NEUTROPHIL# 8.4 X10e3 (1.5-7.1); NEUTROPHIL% 77.7 % (40-75); PLATELET COUNT 168 X10e3 (140-420); RED BLOOD COUNT 4.51 X10e (3.90-5.30); RED CELL DISTRIBUTION WIDTH 22.5 % (11.0-15.5); WHITE BLOOD COUNT 10.8 X10e3 (4.0-10.5)
[2016-12-06 07:32] LABS: DIFF IND NO
[2016-12-07 04:49] LABS: ARTERIAL BLD GAS O2 SATURATION 94.9 % (90.0-100.0); ARTERIAL BLOOD GAS CARBOXY HB 1.9 %sat (0.0-9.0); ARTERIAL BLOOD GAS HCO3 36.5 mmol/L; ARTERIAL BLOOD GAS MET HB 0.6 %sat (0.0-2.0); ARTERIAL BLOOD GAS PO2 90.4 mmHg (80.0-100); ARTERIAL BLOOD GAS pH 7.462 (7.350-7.450)
[2016-12-07 05:15] LABS: ARTERIAL BLOOD GAS ALLEN TEST NORMAL; ARTERIAL BLOOD GAS ART SITE LEFT RADIAL; ARTERIAL BLOOD GAS DELIVERY VENT; ARTERIAL BLOOD GAS PCO2 51.1 mmHg (35.0-45.0); ARTERIAL BLOOD GAS VENT MODE AC; ARTERIAL DRAW? YES
[2016-12-07 05:57] LABS: BASOPHIL# 0.1 X10e3 (0-0.3); BASOPHIL% 0.5 % (0-2.5); EOSINOPHIL# 0.1 X10e3 (0-0.7); EOSINOPHIL% 0.8 % (0.0-7.0); HEMATOCRIT 41.2 % (35.0-45.0); HEMOGLOBIN 12.2 gm/dL (12.0-16.0); LYMPHOCYTE# 0.9 X10e3 (1.0-3.5); LYMPHOCYTE% 7.7 % (17.0-45.0); MEAN CELL VOLUME 89.3 FL (83-96); MEAN CORPUSCULAR HEMOGLOBIN 26.4 PG (28-34); MEAN CORPUSCULAR HGB CONC 29.6 g/dL (30-36); MEAN PLATELET VOLUME 11.7 FL (6.5-11.5); MONOCYTE# 0.9 X10e3 (0-1.0); MONOCYTE% 7.5 % (3.0-12.0); NEUTROPHIL# 10.2 X10e3 (1.5-7.1); NEUTROPHIL% 83.5 % (40-75); PLATELET COUNT 200 X10e3 (140-420); RED BLOOD COUNT 4.61 X10e (3.90-5.30); RED CELL DISTRIBUTION WIDTH 22.9 % (11.0-15.5); WHITE BLOOD COUNT 12.2 X10e3 (4.0-10.5)
[2016-12-07 06:02] LABS: DIFF IND NO
[2016-12-07 06:40] LABS: ALBUMIN SERUM 1.8 g/dL (3.5-5.0); BILIRUBIN,TOTAL 1.1 mg/dL (0.2-2.0); CALCIUM SERUM 8.7 mg/dL (8.4-10.2); CREATININE SERUM 1.4 mg/dL (0.6-1.4); POTASSIUM 4.5 mmol/L (3.5-5.1)
[2016-12-07 19:12] LABS: URINE APPEARANCE CLOUDY; URINE BLOOD TRACE (NEG); URINE COLOR DK YELLOW; URINE GLUCOSE NEG (NEG); URINE KETONE TRACE (NEG); URINE LEUKOCYTE ESTERASE 1+ (NEG); URINE NITRATE NEG (NEG); URINE PROTEIN 1+ (NEG); URINE SPECIFIC GRAVITY 1.027 (1.003-1.035)
[2016-12-07 19:14] LABS: CULTURE INDICATED? YES; URINE BACTERIA AUWI NEG (NEGATIVE); URINE SQUAMOUS EPITHELIAL CELL OCC /[HPF]
[2016-12-07 19:20] LABS: URINE BILIRUBIN NEG (NEG)
[2016-12-07 19:21] LABS: U HYALINE CASTS AUWI 0-2 /[LPF]
[2016-12-07 19:27] LABS: SODIUM URINE RANDOM <10 mmol/L
[2016-12-07 19:53] LABS: OSMOLALITY,URINE 482 mOsmo/kg (250-900)
[2016-12-08 05:07] LABS: ALBUMIN SERUM 1.8 g/dL (3.5-5.0); BILIRUBIN,TOTAL 0.9 mg/dL (0.2-2.0); BUN/CREATININE RATIO 34.66; CALCIUM SERUM 8.8 mg/dL (8.4-10.2); CREATININE SERUM 1.5 mg/dL (0.6-1.4); GLOM FILT RATE Estimated 45.3 mL/min (>60); MAGNESIUM 2.3 mg/dL (1.6-3.0); PHOSPHOROUS 4.5 mg/dL (2.5-4.6); POTASSIUM 3.6 mmol/L (3.5-5.1); PROTEIN TOTAL SERUM 6.6 g/dL (6.0-8.3)
[2016-12-08 05:08] LABS: BASOPHIL# 0.1 X10e3 (0-0.3); BASOPHIL% 0.4 % (0-2.5); EOSINOPHIL# 0.2 X10e3 (0-0.7); EOSINOPHIL% 1.6 % (0.0-7.0); HEMATOCRIT 37.6 % (35.0-45.0); HEMOGLOBIN 10.9 gm/dL (12.0-16.0); LYMPHOCYTE# 1.2 X10e3 (1.0-3.5); LYMPHOCYTE% 8.7 % (17.0-45.0); MEAN CELL VOLUME 89.3 FL (83-96); MEAN CORPUSCULAR HGB CONC 29.1 g/dL (30-36); MEAN PLATELET VOLUME 11.5 FL (6.5-11.5); MONOCYTE# 0.8 X10e3 (0-1.0); MONOCYTE% 6.1 % (3.0-12.0); NEUTROPHIL% 83.2 % (40-75); PLATELET COUNT 186 X10e3 (140-420); RED BLOOD COUNT 4.21 X10e (3.90-5.30); RED CELL DISTRIBUTION WIDTH 22.7 % (11.0-15.5); WHITE BLOOD COUNT 13.2 X10e3 (4.0-10.5)
[2016-12-08 05:23] LABS: DIFF IND NO
[2016-12-09 04:45] LABS: BASOPHIL% 0.4 % (0-2.5); EOSINOPHIL# 0.3 X10e3 (0-0.7); EOSINOPHIL% 2.5 % (0.0-7.0); HEMATOCRIT 34.4 % (35.0-45.0); HEMOGLOBIN 10.4 gm/dL (12.0-16.0); LYMPHOCYTE% 9.9 % (17.0-45.0); MEAN CORPUSCULAR HEMOGLOBIN 26.9 PG (28-34); MEAN CORPUSCULAR HGB CONC 30.3 g/dL (30-36); MEAN PLATELET VOLUME 11.7 FL (6.5-11.5); MONOCYTE# 0.8 X10e3 (0-1.0); NEUTROPHIL# 8.3 X10e3 (1.5-7.1); NEUTROPHIL% 79.2 % (40-75); PLATELET COUNT 175 X10e3 (140-420); RED BLOOD COUNT 3.87 X10e (3.90-5.30); RED CELL DISTRIBUTION WIDTH 22.5 % (11.0-15.5); WHITE BLOOD COUNT 10.5 X10e3 (4.0-10.5)
[2016-12-09 04:47] LABS: DIFF IND NO
[2016-12-09 04:54] LABS: BUN/CREATININE RATIO 36.15; CALCIUM SERUM 8.4 mg/dL (8.4-10.2); CREATININE SERUM 1.3 mg/dL (0.6-1.4); GLOM FILT RATE Estimated 53.4 mL/min (>60); MAGNESIUM 2.1 mg/dL (1.6-3.0); PHOSPHOROUS 3.5 mg/dL (2.5-4.6); POTASSIUM 3.2 mmol/L (3.5-5.1)
[2016-12-09 07:36] LABS: ARTERIAL BLD GAS O2 SATURATION 99.2 % (90.0-100.0); ARTERIAL BLOOD GAS ALLEN TEST NORMAL; ARTERIAL BLOOD GAS ART SITE LEFT RADIAL; ARTERIAL BLOOD GAS CARBOXY HB 1.3 %sat (0.0-9.0); ARTERIAL BLOOD GAS DELIVERY VENT; ARTERIAL BLOOD GAS HCO3 33.7 mmol/L; ARTERIAL BLOOD GAS MET HB 0.8 %sat (0.0-2.0); ARTERIAL BLOOD GAS PCO2 55.2 mmHg (35.0-45.0); ARTERIAL BLOOD GAS VENT MODE SIMV; ARTERIAL BLOOD GAS pH 7.394 (7.350-7.450); ARTERIAL DRAW? YES
== END 2016-12-09 19:48 | DRG 3 ==
LOC: CED 18:06 → CEDOF 11-21 00:16 → CICCU2 11-21 02:32
PROVIDERS: Emergency Medicine; Family Medicine; Internal Medicine; Internal Medicine Cardiovascular Disease; Internal Medicine Nephrology; Internal Medicine Pulmonary Disease; Surgery
PROC: 0BH17EZ Insertion of Endotracheal Airway into Trachea, Via Natural or Artificial Opening (ICD-10-PCS; principal; 2016-11-21)
PROC: 5A1955Z Respiratory Ventilation, Greater than 96 Consecutive Hours (ICD-10-PCS; 2016-11-21)
PROC: 05HN33Z Insertion of Infusion Device into Left Internal Jugular Vein, Percutaneous Approach (ICD-10-PCS; 2016-11-21)
PROC: B544ZZA Ultrasonography of Left Jugular Veins, Guidance (ICD-10-PCS; 2016-11-21)
PROC: 02HV33Z Insertion of Infusion Device into Superior Vena Cava, Percutaneous Approach (ICD-10-PCS; 2016-11-28)
PROC: 4A02X4A Measurement of Cardiac Electrical Activity, Guidance, External Approach (ICD-10-PCS; 2016-11-28)
PROC: 0DJ08ZZ Inspection of Upper Intestinal Tract, Via Natural or Artificial Opening Endoscopic (ICD-10-PCS; 2016-11-30)
PROC: 0B110F4 Bypass Trachea to Cutaneous with Tracheostomy Device, Open Approach (ICD-10-PCS; 2016-12-01)
PROC: 0DJ08ZZ Inspection of Upper Intestinal Tract, Via Natural or Artificial Opening Endoscopic (ICD-10-PCS; 2016-12-01)
PROC: 0DH60UZ Insertion of Feeding Device into Stomach, Open Approach (ICD-10-PCS; 2016-12-02)
PROC: 0BB68ZX Excision of Right Lower Lobe Bronchus, Via Natural or Artificial Opening Endoscopic, Diagnostic (ICD-10-PCS; 2016-12-05)
PROC: 0BB48ZX Excision of Right Upper Lobe Bronchus, Via Natural or Artificial Opening Endoscopic, Diagnostic (ICD-10-PCS; 2016-12-05)
PROC: 0BB58ZX Excision of Right Middle Lobe Bronchus, Via Natural or Artificial Opening Endoscopic, Diagnostic (ICD-10-PCS; 2016-12-05)
PROC: 0D1L0Z4 Bypass Transverse Colon to Cutaneous, Open Approach (ICD-10-PCS; 2016-12-06)
PROC: 0DTE0ZZ Resection of Large Intestine, Open Approach (ICD-10-PCS; 2016-12-06)
PROC: 02HV33Z Insertion of Infusion Device into Superior Vena Cava, Percutaneous Approach (ICD-10-PCS; 2016-12-07)
PROC: 4A02X4A Measurement of Cardiac Electrical Activity, Guidance, External Approach (ICD-10-PCS; 2016-12-07)
DX: I11.0 Hypertensive heart disease with heart failure (principal); N17.0 Acute kidney failure with tubular necrosis; A41.89 Other specified sepsis; J69.0 Pneumonitis due to inhalation of food and vomit; K65.0 Generalized (acute) peritonitis; J96.21 Acute and chronic respiratory failure with hypoxia; T17.590A Other foreign object in bronchus causing asphyxiation, initial encounter; G93.41 Metabolic encephalopathy; K63.1 Perforation of intestine (nontraumatic); J96.22 Acute and chronic respiratory failure with hypercapnia; E87.2 Acidosis; E87.0 Hyperosmolality and hypernatremia; J44.1 Chronic obstructive pulmonary disease with (acute) exacerbation; E44.1 Mild protein-calorie malnutrition; E87.3 Alkalosis; Z68.45 Body mass index [BMI] 70 or greater, adult; I48.91 Unspecified atrial fibrillation; Z90.49 Acquired absence of other specified parts of digestive tract; Z90.710 Acquired absence of both cervix and uterus; G47.33 Obstructive sleep apnea (adult) (pediatric); I50.33 Acute on chronic diastolic (congestive) heart failure; I48.2 Chronic atrial fibrillation; E66.01 Morbid (severe) obesity due to excess calories; K29.70 Gastritis, unspecified, without bleeding; E87.6 Hypokalemia; E83.42 Hypomagnesemia; I07.1 Rheumatic tricuspid insufficiency; R74.0 Nonspecific elevation of levels of transaminase and lactic acid dehydrogenase [LDH]
CPT/HCPCS: 36415; 36600; 51702; 71010; 74000; 80048; 80053; 80076; 80162; 81003; 82308; 82550; 82553; 82803; 82947; 83605; 83735; 83880; 83935; 84100; 84132; 84300; 84484; 85025; 85027; 85379; 85610; 85730; 87040; 87070; 87075; 87086; 87102; 87116; 87205; 87206; 87252; 87254; 87278; 88108; 88305; 88307; 89051; 89190; 93005; 93970; 94002; 94003; 94640; 94660; 94760; 94761; 96374; 97110; 97163; 99285; C1750; C1769; C1781; C8929; C9113; G8978-GP; G8979-GP; J0171; J1120; J1160; J1170; J1450; J1644; J1650; J1815; J1940; J2020; J2185; J2250; J2405; J2543; J3010; J3370; J3475; J3480; J3490; Q9957